=== PATIENT | female | born 1995 | race Caucasian/White ===

== ENCOUNTER 2016-04-23 09:02 | Observation (INO) | payer MEDICARE, MEDICAID ==
[2016-04-23] VITALS (10 sets, daily range): BP systolic 103–144; BP diastolic 52–79; PULSE 82–100; RESP 16–20; TEMP 97.9–98.1; O2SAT 100
[~2016-04-23] VITALS: Ht 167.6 cm; Wt 125.8 kg
[~2016-04-23 09:02] MED LIST: B12-1CHW CHEW; BETH10TA2 PO; CLON0.1T PO; COLE1TAB2 PO; DICL75TA PO; PRED50 PO; RISP1 PO; ROBA750T PO; SERT-129 PO; TOPA100T11 PO
[2016-04-23] MEDS ORDERED: LEXA20TA PO (09:23)
[2016-04-23] MEDS ORDERED: MINO75CA PO (09:23)
--- NOTE | 2016-04-23 09:29 | PD ---
HPI Chief Complaint: GI Complaint Time Seen by Provider: 09:18 Travel History International Travel<30 days: No Contact w/Intl Traveler<30days: No Traveled to known affect area: No History of Present Illness HPI 20-year-old morbidly obese female here with complaint of abdominal pain. Patient has had 4-5 days of abdominal pain. This is crampy, across the upper abdomen epigastrium radiating left and right and around to the back. Slightly up into the chest. Associated nausea, vomiting. 5-6 episodes of emesis per day, nonbloody, nonbilious. She notes subjective fevers and chills, nothing documented. Denies any history of hepatobiliary pathology, gastritis, peptic ulcer disease. Notes a history of familial pancreatic cancer. Denies any urinary symptoms. LMP approximately 3 weeks ago. PFSH Past Medical History ADHD: Yes Anemia: Yes Autoimmune Disease: No Anxiety: Yes (PANIC ATTACKS) Depression: Yes Cardiovascular Problems: Yes ("PERICARDITIS" 2010) Diminished Hearing: No Gastrointestinal Disorders: Yes (CROHN'S DISEASE) GERD: Yes Genitourinary: No Headaches: Yes Musculoskeletal: Yes (SCOLIOSIS, costochondritis ) Neurologic: Yes (TREMORS, TOURETTES) Psychiatric: Yes (ADHD) Reproductive: No Respiratory: No Immunizations Current: Yes Seizures: No ?: Not LMP: 3 WEEKS : 0 Para: 0 Past Surgical History Oral Surgery: Yes (WISDOM TEETH REMOVED) Other Surgery: Yes (PILONIDAL CYST ) Social History Alcohol Use: Yes (occ) Tobacco Use: No Substance Use: No Allergies-Medications (Allergen,Severity, Reaction): Coded Allergies: Benadryl (Verified Allergy, Intermediate, HIVES, GI UPSET, 04/23/16) Reported Meds & Prescriptions Reported Meds & Active Scripts Active Reported Lexapro (Escitalopram Oxalate) 20 Mg Tab 20 Mg PO DAILY Minocycline (Minocycline HCl) 75 Mg Cap 75 Mg PO BID Colestipol (Colestipol HCl) 1 Gm Tab 2 Gm PO DAILY Topamax (Topiramate) 100 Mg Tab 100 Mg PO DAILY Risperdal (Risperidone) 1 Mg Tab 0.5 Mg PO BID [id number] (Methylcobalamin) 1 Mg Chew 1 Mg CHEW DAILY Clonidine (Clonidine HCl) 0.1 Mg Tab 0.15 Mg PO TID Bethanechol 10 Mg Tab 10 Mg PO TID Review of Systems Except as stated in HPI: all other systems reviewed are Neg Physical Exam Narrative GENERAL: Morbidly obese female appearing older than stated age in no acute distress SKIN: Warm and dry. HEAD: Normocephalic. EYES: No scleral icterus. No injection or drainage. ENT: Mucous membranes pink and moist. NECK: Supple CARDIOVASCULAR: Regular rate and rhythm. No murmur appreciated. RESPIRATORY: No accessory muscle use. Clear to auscultation. Breath sounds equal bilaterally. GASTROINTESTINAL: Abdomen soft, morbidly obese. Abdominal tenderness to palpation without rebound or guarding, moderate greater's in the right upper quadrant. Patient also has tenderness to palpation in the epigastrium, periumbilical and less so right lower quadrant. No CVA tenderness. MUSCULOSKELETAL: Normal gait NEUROLOGICAL: Awake and alert. Normal speech. PSYCHIATRIC: Appropriate mood and affect; insight and judgment normal. Data Data Last Documented VS Vital Signs Date Time Temp Pulse Resp B/P Pulse Ox O2 Delivery O2 Flow Rate FiO2 04/23/16 11:05 98 16 109/75 100 Room Air 04/23/16 09:08 98.1 Orders Complete Blood Count With Diff (04/23/16 09:22) Comprehensive Metabolic Panel (04/23/16 09:22) Lipase (04/23/16 09:22) Urinalysis - C+S If Indicated (04/23/16 09:22) Us Abdomen Gallbladder (04/23/16 ) Iv Access Insert/Monitor (04/23/16 09:22) Ecg Monitoring (04/23/16 09:22) Oximetry (04/23/16 09:22) Ondansetron Inj (Zofran Inj) (04/23/16 09:30) Sodium Chloride 0.9% Flush (Ns Flush) (04/23/16 09:30) Ketorolac Inj (Toradol Inj) (04/23/16 09:30) Ed Urine Pregnancytest Poc (04/23/16 09:22) Ct Abd/Pel W/O Iv Contrast (04/23/16 10:56) Morphine Inj (Morphine Inj) (04/23/16 12:00) Piperacil-Tazo 4.5 Gm Premix (Zosyn 4.5 (04/23/16 12:15) Admit Order (Ed Use Only) (04/23/16 12:07) Labs Laboratory Tests Test 04/23/16 04/23/16 09:30 10:55 White Blood Count 19.3 TH/MM3 Red Blood Count 4.96 MIL/MM3 Hemoglobin 13.9 GM/DL Hematocrit 41.8 % Mean Corpuscular Volume 84.3 FL Mean Corpuscular Hemoglobin 28.0 PG Mean Corpuscular Hemoglobin 33.3 % Concent Red Cell Distribution Width 14.0 % Platelet Count 335 TH/MM3 Mean Platelet Volume 7.8 FL Neutrophils (%) (Auto) 85.1 % Lymphocytes (%) (Auto) 6.7 % Monocytes (%) (Auto) 7.0 % Eosinophils (%) (Auto) 0.5 % Basophils (%) (Auto) 0.7 % Neutrophils # (Auto) 16.5 TH/MM3 Lymphocytes # (Auto) 1.3 TH/MM3 Monocytes # (Auto) 1.3 TH/MM3 Eosinophils # (Auto) 0.1 TH/MM3 Basophils # (Auto) 0.1 TH/MM3 CBC Comment AUTO DIFF Differential Comment AUTO DIFF CONFIRMED Platelet Estimate NORMAL Platelet Morphology Comment NORMAL Red Cell Morphology Comment NORMAL Sodium Level 141 MEQ/L Potassium Level 4.1 MEQ/L Chloride Level 109 MEQ/L Carbon Dioxide Level 23.0 MEQ/L Anion Gap 9 MEQ/L Blood Urea Nitrogen 11 MG/DL Creatinine 0.75 MG/DL Estimat Glomerular Filtration 98 ML/MIN Rate Random Glucose 114 MG/DL Calcium Level 8.9 MG/DL Total Bilirubin 0.2 MG/DL Aspartate Amino Transf 10 U/L (AST/SGOT) Alanine Aminotransferase 24 U/L (ALT/SGPT) Alkaline Phosphatase 88 U/L Total Protein 7.7 GM/DL Albumin 3.7 GM/DL Lipase 171 U/L Urine Collection Type CLEAN CATCH Urine Color YELLOW Urine Turbidity CLEAR Urine pH 6.0 Urine Specific Worden 1.013 Urine Protein NEG mg/dL Urine Glucose (UA) NEG mg/dL Urine Ketones NEG mg/dL Urine Occult Blood NEG Urine Nitrite NEG Urine Bilirubin NEG Urine Leukocyte Esterase TRACE Urine WBC 0-2 /hpf Microscopic Urinalysis Comment CULT NOT INDICATED Urine Collection Time 1055 MDM Medical Decision Making Medical Screen Exam Complete: Yes Emergency Medical Condition: Yes Medical Record Reviewed: Yes Differential Diagnosis Morbidly obese 20-year-old female here with complaint of 4-5 days of upper abdominal pain, no reproducible greatest in the right upper quadrant on exam, with nausea and vomiting. Differential includes gastritis, pancreatitis, hepatobiliary pathology, UTI/pyelonephritis, less likely appendicitis, . Narrative Course Patient placed on monitor, IV established and blood obtained. Given 4 mg Zofran , 30 mg Toradol. CBC, CMP, lipase, urinalysis, urine test obtained and notable for WBC 19.3. Ultrasound of the right upper quadrant showed cholelithiasis with multiple mobile gallstones in the gallbladder. Fatty metamorphosis of the liver. Given leukocytosis a CT of the abdomen and pelvis was obtained to rule out appendicitis as she does have right sided abdominal pain. CT showed no evidence of abnormalities. Her history and exam are most consistent with early cholecystitis. Patient still quite uncomfortable requiring morphine. Given Zosyn and I spoke with Dr. Sharp of Gen. surgery who will admit for laparoscopic cholecystectomy. Diagnosis Primary Impression: Acute cholecystitis Admitting Information Admitting Physician Requests: Admit Federica Sanchez MD Apr 23, 2016 09:29
[2016-04-23] MEDS ORDERED: ONDANSETRON HCL 4 MG/2 ML VIAL IVP ONE (09:30)
[2016-04-23] MEDS ORDERED: SODIUM CHLORIDE 0.9% FLUSH 5 ML FLUSH IVF PRN (09:30)
[2016-04-23] MEDS ORDERED: KETOROLAC TROMETHAMINE 30 MG/ML (IVP) VIAL IVP ONE (09:30)
[2016-04-23 09:50] LABS: AUTOMATED NEUTROPHIL # 16.5 TH/MM3 (1.8-7.7); BASOPHIL # 0.1 TH/MM3 (0-0.2); BASOPHIL % 0.7 % (0.0-2.0); EOSINOPHIL # 0.1 TH/MM3 (0-0.4); EOSINOPHIL % 0.5 % (0.0-4.0); HEMATOCRIT 41.8 % (35.0-46.0); LYMPH % 6.7 % (9.0-44.0); LYMPHOCYTE # 1.3 TH/MM3 (1.0-4.8); MEAN CELL VOLUME 84.3 FL (80.0-100.0); MEAN CORPUSCULAR HGB CONC 33.3 % (32.0-36.0); NEUT % 85.1 % (16.0-70.0); PLATELET COUNT 335 TH/MM3 (150-450); RED BLOOD COUNT 4.96 MIL/MM3 (4.00-5.30); WHITE BLOOD COUNT 19.3 TH/MM3 (4.0-11.0)
[2016-04-23 09:57] LABS: HEMO FLAGS AUTO DIFF
[2016-04-23 10:06] LABS: CHLORIDE 109 MEQ/L (98-107); POTASSIUM 4.1 MEQ/L (3.5-5.1); SODIUM (NA) 141 MEQ/L (136-145)
[2016-04-23 10:10] LABS: ANION GAP 9 MEQ/L (5-15); BLOOD UREA NITROGEN 11 MG/DL (7-18)
[2016-04-23 10:14] LABS: ALT (GPT) 24 U/L (10-53); AST (GOT) 10 U/L (15-37)
[2016-04-23 10:15] LABS: GLOMERULAR FILTRATION RATE 98 ML/MIN (>89)
[2016-04-23 10:17] LABS: ALKALINE PHOSPHATASE 88 U/L (45-117)
[2016-04-23 10:29] LABS: TOTAL BILIRUBIN ADULT 0.2 MG/DL (0.2-1.0)
[2016-04-23 10:34] LABS: PLATELET ESTIMATE SMEAR NORMAL (NORMAL); PLATELET MORPHOLOGY NORMAL (NORMAL); SCAN/DIFF AUTO DIFF CONFIRMED
--- NOTE | 2016-04-23 11:07 | RADHPO ---
EXAM DATE/TIME: 04/23/2016 10:33 [facility] COMPARISON: CT ABDOMEN & PELVIS W CONTRAST, April 30, 2013, 0:09. EXTERNAL COMPARISON : [facility], US ABDOMEN, COMPLETE, January 24, 2011 INDICATIONS : Right upper quadrant pain, nausea and vomiting. MEDICAL HISTORY : Tremors. Tourette's syndrome. pericarditis. gerd. scoliosis. costochondritis. anemia. SURGICAL HISTORY : Oral surgery - wisdom teeth removed. Endoscopy. Pilonidal cyst removed. ENCOUNTER: Initial ACUITY: 4-6 days PAIN SCORE: 9/10 LOCATION: Right upper quadrant MEASUREMENTS: LIVER: 19.1 cm length COMMON DUCT: 4 mm RIGHT KIDNEY: 10.7 x 5.2 x 5.7 cm FINDINGS: LIVER: Liver is enlarged at 19 cm vertical height with increased homogeneous echotexture consistent with fat ty metamorphosis.. COMMON DUCT: No intraluminal mass or stone visualized. GALLBLADDER: Multiple mobile stones within the gallbladder. PANCREAS: The visualized portions are within normal limits. RIGHT KIDNEY: No evidence of hydronephrosis, stone, or mass. CONCLUSION: Cholelithiasis multiple mobile stones in the gallbladder. Fatty metamorphosis of the liver Michoacano Villatoro MD on April 23, 2016 at 11:03 Board Certified Radiologist. This report was verified electronically.
[2016-04-23 11:14] LABS: BLOOD, URINE NEG (NEG); GLUCOSE,URINE NEG (NEG); KETONE, URINE NEG (NEG); NITRITE,URINE NEG (NEG)
[2016-04-23 11:24] LABS: COMMENT (UR) CULT NOT INDICATED; CULTURE IF INDICATED CULT NOT INDICATED; METHOD OF COLLECTION CLEAN CATCH; URINE COLOR YELLOW (YELLW/STRAW); WBC, URINE 0-2 /hpf (0-5)
--- NOTE | 2016-04-23 11:48 | RADHPO ---
EXAM DATE/TIME: 04/23/2016 11:12 [facility] COMPARISON: CT ABDOMEN & PELVIS W CONTRAST, April 30, 2013, 0:09. INDICATIONS : Right sided abdominal pain. Evaluate for appendicitis. ORAL CONTRAST: No oral contrast ingested. RADIATION DOSE: 31.41 CTDIvol (mGy) MEDICAL HISTORY : Crohn's disease. Gastroesophageal reflux disease. SURGICAL HISTORY : None. ENCOUNTER: Initial ACUITY: 1 week PAIN SCALE: 9/10 LOCATION: Right abdomen/pelvis TECHNIQUE: Volumetric scanning of the abdomen and pelvis was performed. Using automated exposure control and ad justment of the mA and/or kV according to patient size, radiation dose was kept as low as reasonably achievable to obtain optimal diagnostic quality images. FINDINGS: LOWER LUNGS: The visualized lower lungs are clear. LIVER: Homogeneous density without lesion. There is no dilation of the biliary tree. No calcified gallston es. Gallbladder seen is a luminal structure without wall thickening. SPLEEN: Normal size without lesion. PANCREAS: Within normal limits. KIDNEYS: Normal in size and shape. There is no mass, stone, or hydronephrosis. ADRENAL GLANDS: Within normal limits. VASCULAR: There is no aortic aneurysm. BOWEL/MESENTERY: The stomach, small bowel, and colon demonstrate no acute abnormality. There is no free intraperitone al air or fluid. Appendix visualized and is normal. ABDOMINAL WALL: Within normal limits. RETROPERITONEUM: There is no lymphadenopathy. BLADDER: No wall thickening or mass. REPRODUCTIVE: Within normal limits. INGUINAL: There is no lymphadenopathy or hernia. MUSCULOSKELETAL: Within normal limits for patient age. CONCLUSION: Negative examination. Appendix visualized and is normal. Michoacano Villatoro MD on April 23, 2016 at 11:43 Board Certified Radiologist. This report was verified electronically.
[2016-04-23] MEDS ORDERED: MORPHINE SULFATE 4 MG/ML INJ IV PUSH ONE ×2 (12:00→15:15)
[2016-04-23] MEDS ORDERED: PIPERACIL-TAZO 4.5 GM PREMIX 100 ML IV ONE (12:15)
[2016-04-23] MEDS ORDERED: oxyCODONE/ACETAMINOPHEN 5 MG/325 MG TAB PO ONE (15:15)
[2016-04-23] MEDS ORDERED: ONDANSETRON HCL 4 MG/2 ML VIAL IV PUSH ONE (15:45)
[2016-04-23] MEDS ORDERED: MORPHINE SULFATE 4 MG/ML INJ IV PRN (21:00)
[2016-04-23] MEDS ORDERED: PILL SPLITTER OTHER PRN (21:30)
[2016-04-23] MEDS ORDERED: ESCITALOPRAM OXALATE 20 MG TAB PO ONE (22:00)
[2016-04-23] MEDS: KETOROLAC TROMETHAMINE 30 MG/ML (IVP) VIAL IV PUSH PRN (22:27)
[2016-04-23] MEDS: ONDANSETRON HCL 4 MG/2 ML VIAL IV PUSH PRN (23:05)
[2016-04-23] MEDS: SODIUM CHLOR 0.9% 1000 ML INJ 1,000 ML IV SCH (23:06)
[2016-04-24] VITALS: BP 117/72; PULSE 89; RESP 20; TEMP 98.7; O2SAT 99
[2016-04-24] MEDS: PIPERACIL-TAZO 3.375 GM PREMIX 50 ML IV SCH ×5 (00:25→21:38)
[2016-04-24] MEDS ORDERED: LACTATED RINGER'S 1000 ML IV SCH (05:00)
[2016-04-24] MEDS: ONDANSETRON HCL 4 MG/2 ML VIAL IV PUSH PRN (05:25)
[2016-04-24] MEDS ORDERED: ACETAMINOPHEN 325 MG TAB PO PRN ×2 (07:30→16:00)
[2016-04-24] MEDS: BETHANECHOL CHL 10 MG TAB PO SCH ×3 (07:49→18:23)
[2016-04-24] MEDS: TOPIRAMATE 100 MG TAB PO SCH (07:49)
[2016-04-24] MEDS: cloNIDine HCL 0.3 MG TAB PO SCH ×3 (07:49→18:23)
[2016-04-24] MEDS: ESCITALOPRAM OXALATE 20 MG TAB PO SCH (07:49)
[2016-04-24] MEDS: SODIUM CHLOR 0.9% 1000 ML INJ 1,000 ML IV SCH ×2 (07:50→16:00)
[2016-04-24] MEDS: risperiDONE 0.5 MG TAB PO SCH (07:50)
[2016-04-24 08:00] VITALS: BP 128/78; PULSE 81; RESP 17; TEMP 96.2; O2SAT 100
[2016-04-24] MEDS ORDERED: BETHANECHOL CHL 10 MG TAB PO SCH (09:00)
[2016-04-24 12:00] VITALS: BP 133/64; PULSE 95; RESP 17; TEMP 97.3; O2SAT 99
[2016-04-24] MEDS ORDERED: FAMOTIDINE 20 MG/2 ML VIAL ONE (12:46)
[2016-04-24] MEDS ORDERED: APREPITANT 40 MG CAP ONE (12:46)
[2016-04-24] MEDS ORDERED: MIDAZOLAM HCL 2 MG/2 ML VIAL ONE (12:46)
[2016-04-24] MEDS ORDERED: DEXAMETHASONE SOD PHOS 4 MG/ML VIAL ONE (12:47)
[2016-04-24] MEDS ORDERED: fentaNYL CITRATE 250 MCG/5 ML AMP ONE (13:55)
[2016-04-24] MEDS ORDERED: ONDANSETRON HCL 4 MG/2 ML VIAL IV PUSH ONE (14:05)
[2016-04-24] MEDS ORDERED: PROPOFOL 200 MG/20 ML AMP IV ONE (14:05)
[2016-04-24] MEDS ORDERED: NEOSTIGMINE 3 MG/3 ML SYR IV ONE (14:05)
[2016-04-24] MEDS ORDERED: BUPIVACAINE/EPINEPHRINE 0.25% PF 30 ML VIAL ONE (14:46)
[2016-04-24] MEDS ORDERED: diphenhydrAMINE HCL 25 MG CAP PO PRN (16:00)
[2016-04-24] MEDS ORDERED: MAGNESIUM HYDROXIDE SUSP 30 ML CUP PO PRN (16:00)
[2016-04-24] MEDS ORDERED: HYDROmorphone HCL PF 1 MG/ML VIAL IV PRN (16:00)
[2016-04-24] MEDS ORDERED: ACETAMINOPHEN/HYDROcodone 325 MG/5 MG TAB PO PRN (16:00)
[2016-04-24] MEDS ORDERED: SODIUM CHLORIDE 0.9% FLUSH 5 ML FLUSH IVF PRN (16:00)
[2016-04-24] MEDS ORDERED: Post-op Orders (for Pharmacy) MISC XX ONE (16:00)
[2016-04-24] MEDS ORDERED: ONDANSETRON HCL 4 MG/2 ML VIAL IV PRN (16:00)
--- NOTE | 2016-04-24 16:06 | HHI.PR ---
Immediate Post Op Note Procedure Date: Apr 24, 2016 Pre Op Diagnosis: (1) Acute cholecystitis Post Op Diagnosis: (1) Acute cholecystitis Surgeon: Rg Sharp Vocational Director(s): none Procedure: Robotic Assisted Cholecystectomy Findings: acute cholecystitis Complications: none Specimen(s) removed: GB Estimated blood loss: 10ml Anesthesia: General, Local Drains: None IVF Patient to: PACU Patient Condition: Good Rg Sharp MD Apr 24, 2016 16:06
[2016-04-24] MEDS ORDERED: *RESP: ALBUTEROL 2.5 MG/3 ML NEB (PRN) PERIprocedural Use ONLY NEB ONE (16:30)
--- NOTE | 2016-04-24 16:44 | MH ---
cc: BRYAN ANDERS DATE OF ADMISSION 04/23/2016. Time is 0730 of physical examination. CHIEF COMPLAINT Acute cholecystitis. HISTORY OF PRESENT ILLNESS The patient is a 20-year-old female who was seen at [facility] for severe right upper quadrant pain for 4-5 days. The patient underwent evaluation and was found to have significant tenderness in right upper quadrant on physical examination by the emergency room physician. The CT scan and ultrasound did show cholelithiasis concerning for acute cholecystitis. The patient also had elevated white blood cell count. The patient did request surgery and was transferred to [facility] for surgical evaluation and cholecystectomy. Currently the patient's pain is controlled, does still have some pain in the upper right quadrant. The patient denies any nausea, vomiting, fevers, chills, night sweats, diarrhea, constipation, any previous history of this pain, any sick contacts or any chest pain, shortness of breath or any other complaints. REVIEW OF SYSTEMS A 12-point you systems was discussed with the patient and is negative except for the pertinent positives mentioned above in the history of present illness. PAST MEDICAL HISTORY 1. ADHD. 2. Anemia. 3. Anxiety. 4. Depression. 5. History of pericarditis. 6. Crohn disease. 7. Gastroesophageal reflux disease. 8. Scoliosis. 9. Chronic headaches. 10. Tourette's syndrome. PAST SURGICAL HISTORY 1. [place] teeth extraction. 2. Pilonidal cyst removal. ALLERGIES BENADRYL. MEDICATIONS 1. Lexapro. 2. Minocycline. 3. Cholestipol. 4. Toprol. 5. Risperdal. 6. B12. 7. Clonidine. 8. Bethanechol. SOCIAL HISTORY The patient uses alcohol occasionally. Denies illicit drug or tobacco use. FAMILY HISTORY Noncontributory. PHYSICAL EXAMINATION VITAL SIGNS: Afebrile. Blood pressure 113/52, heart rate 84. GENERAL: The patient is an overweight female in no acute distress. Does not appear acute or chronically ill. distress. HEENT: Normocephalic, atraumatic. Pupils round, reactive to light and accommodation. Sclerae is anicteric. Mucous membranes are moist. NECK: Supple. No JVD. LUNGS: Clear to auscultation bilaterally. Nonlabored breathing pattern. HEART: Regular rate and rhythm. No murmurs. ABDOMEN: Soft. Tender to palpation in the right upper quadrant. Positive Alatorre sign. Negative for right lower quadrant pain. Negative for hernia, ascites, organomegaly. Negative for rebound tenderness. Normal bowel sounds. EXTREMITIES: No clubbing, cyanosis or edema. BACK: No CVA tenderness. NEUROLOGICAL: The patient is alert and oriented times three. Moving all extremities equally. Cranial nerves II through XII are grossly intact. ASSESSMENT AND PLAN The patient is 20-year-old female with acute cholecystitis. Discussed with the patient about management including nonoperative management and I discussed the risks, benefits, alternatives to laparoscopic cholecystectomy. She agreed to undergo laparoscopic cholecystectomy which we will plan. All of her questions were answered to her satisfaction. We will perform procedure in the next 24 hours based on operating room availability. Bryan Anders MD AWG/KK /4:14 PM /4:27 PM
[2016-04-24] MEDS ORDERED: *morphine SULFATE 8 MG/ML PERIprocedure ONLY ONE ×2 (16:45→17:19)
[2016-04-24] MEDS ORDERED: *ONDANSETRON 4 MG VIAL PERIprocedural Use ONLY ONE (16:53)
[2016-04-24 19:58] VITALS: BP 123/70; PULSE 92; RESP 18; TEMP 97.4; O2SAT 97
[2016-04-24 20:45] VITALS: O2SAT 97
[2016-04-24] MEDS: SODIUM CHLORIDE 0.9% FLUSH 5 ML FLUSH IVF SCH (21:00)
[2016-04-24] MEDS: DOCUSATE SODIUM 100 MG CAP PO SCH (21:38)
[2016-04-24] MEDS: KETOROLAC TROMETHAMINE 30 MG/ML (IVP) VIAL IV PUSH PRN (21:38)
[2016-04-24 23:37] VITALS: BP 116/69; PULSE 102; RESP 18; TEMP 97.5; O2SAT 97
[2016-04-25] MEDS: SODIUM CHLOR 0.9% 1000 ML INJ 1,000 ML IV SCH (02:01)
[2016-04-25] MEDS: PIPERACIL-TAZO 3.375 GM PREMIX 50 ML IV SCH (03:42)
[2016-04-25] MEDS: ACETAMINOPHEN/HYDROcodone 325 MG/5 MG TAB PO PRN ×2 (03:42→09:19)
[2016-04-25 04:00] VITALS: BP 96/55; PULSE 94; RESP 18; TEMP 97.3; O2SAT 96
--- NOTE | 2016-04-25 06:46 | MP ---
cc: BRYAN ANDERS DATE OF SURGERY 04/24/2016 PREOPERATIVE DIAGNOSIS Acute cholecystitis. POSTOPERATIVE DIAGNOSIS Acute cholecystitis. PROCEDURE Robotic-assisted cholecystectomy. ANESTHESIA General. ATTENDING SURGEON MD Aron [employer] BLOCK[employer] Staff. BLOOD LOSS Less than 10 cc. COMPLICATIONS None. FINDINGS Acute cholecystitis. INDICATIONS FOR PROCEDURE The patient is a 20-year-old female with elevated white blood cell count, right lower quadrant tenderness and cholelithiasis on exam. The patient was recommended to undergo laparoscopic or robotic cholecystectomy for treatment of her cholecystitis and, after discussion with the patient about the risks, benefits and alternatives, she agreed to undergo the procedure. PROCEDURE After informed consent was obtained, the patient was taken to the operating, placed in a supine position, placed under general endotracheal anesthesia. The patient's abdomen was prepped and draped in the usual sterile fashion. Time-out was performed. The abdomen was entered just above the umbilicus with a 10-mm OptiView trocar. We directly visualized entry into the abdominal cavity and insufflated the abdomen. We used a 5-mm 0-degree camera to survey the abdomen. There was no evidence any complication from our entry. We then placed three robotic ports, one in the left upper quadrant and two in the right lower quadrant under direct visualization with the laparoscope. Then docked the da Maris SI robotic system without difficulty. We used a ProGrasp in arm #3 to lift up on the gallbladder and a fenestrated bipolar and scissors with electrocautery in arm #1 and began dissecting the gallbladder at the triangle of Calot. We took down all of the visceral peritoneum and easily dissected out the cystic duct and cystic artery. A critical view of safety was obtained. We then used the robotic permanent clips and placed one proximal and one distal on the cystic duct, one proximal and one distal on the cystic artery and one proximal on a very small posterior branch of the cystic artery. We used the scissors to take the gallbladder off of the gallbladder fossa using Monocryl electrocautery without difficulty. Removed the gallbladder from the abdomen through the left upper quadrant the 8 port that was extended to a 10 port with the EndoCatch bag. At this point in time we then removed all ports an undocked the robot without difficulty. We did evaluate the abdomen prior to leaving. There is no evidence any complication, no bile leak, no bleeding and all our clips were in good position. All ports were placed off the midline, therefore we were able to just close the skin with deep dermal Vicryl and 4-0 Monocryl sutures. The patient was discontinued from anesthesia, taken to the PACU in stable condition. The patient tolerated the procedure well. No apparent complications. All counts were correct and I was present and scrubbed for the entire procedure. MD KORINA Fleming/SSB /4:20 PM /6:33 AM
[2016-04-25 08:00] VITALS: BP 100/50; PULSE 98; RESP 16; TEMP 97.8; O2SAT 97
[2016-04-25] MEDS: cloNIDine HCL 0.3 MG TAB PO SCH (09:00)
[2016-04-25] MEDS: DOCUSATE SODIUM 100 MG CAP PO SCH (09:19)
[2016-04-25] MEDS: TOPIRAMATE 100 MG TAB PO SCH (09:19)
[2016-04-25] MEDS: ESCITALOPRAM OXALATE 20 MG TAB PO SCH (09:19)
[2016-04-25] MEDS: risperiDONE 0.5 MG TAB PO SCH (09:19)
[2016-04-25] MEDS: BETHANECHOL CHL 10 MG TAB PO SCH (09:19)
[2016-04-25] MEDS: SODIUM CHLORIDE 0.9% FLUSH 5 ML FLUSH IVF SCH (09:20)
[2016-04-25 09:30] VITALS: BP 115/56
[2016-04-25 10:09] VITALS: O2SAT 97
[2016-04-25 12:00] VITALS: BP 98/53; PULSE 85; RESP 18; TEMP 96.9; O2SAT 99
--- NOTE | 2016-04-25 13:03 | HHI.DS ---
Discharge Summary Admission Date Apr 23, 2016 at 12:09 Discharge Date: Apr 25, 2016 Admitting Diagnosis early acute cholecystitis Brief History 20 year old female with RUQ pain. Evaluation completed and revealed acute cholecystitis. CBC/BMP: 04/23/16 0930 04/23/16 0930 Significant Findings Laboratory Tests Test 04/23/16 04/23/16 09:30 10:55 White Blood Count 19.3 TH/MM3 (4.0-11.0) Neutrophils (%) (Auto) 85.1 % (16.0-70.0) Lymphocytes (%) (Auto) 6.7 % (9.0-44.0) Neutrophils # (Auto) 16.5 TH/MM3 (1.8-7.7) Monocytes # (Auto) 1.3 TH/MM3 (0-0.9) Chloride Level 109 MEQ/L (98-107) Random Glucose 114 MG/DL (74-106) Aspartate Amino Transf 10 U/L (15-37) (AST/SGOT) Urine Leukocyte Esterase TRACE (NEG) PE at Discharge Alert and awake resting in bed Cardio: RRR Resp: CTAB Abd: lap sites c/d/i with skin glue intact Hospital Course This is a 20 year old female who came to the ED for evaluation of RUQ pain. Workup revealed acute cholecystitis. The patient had a laparoscopic cholecystectomy with no complications. She was able to tolerate a regular diet. Her pain was controlled using oral pain medications. She was provided a note for work. She will follow up in the office in about 7-10 days. Pt Condition on Discharge: Good Discharge Disposition: Discharge Home Discharge Instructions DIET: Follow Instructions for: As Tolerated, No Restrictions Activities you can perform: Regular-No Restrictions Other Activity Instructions: Okay to shower; pat incision dry Liliane Cabrera Apr 25, 2016 13:03
[2016-04-25] MEDS ORDERED: ENOXAPARIN SODIUM 40 MG/0.4 ML SYRINGE SQ SCH (15:45)
== END 2016-04-25 13:27 | disposition home or self-care (01) ==
LOC: PHED 09:02 → PHEDA 12:09 → INTOOBSV 12:09 → N07A 17:49
PROVIDERS: ADMIT Surgery; ATTEND Surgery
DX: K80.12 Calculus of gallbladder with acute and chronic cholecystitis without obstruction (principal); K50.90 Crohn's disease, unspecified, without complications; D64.9 Anemia, unspecified; F41.0 Panic disorder [episodic paroxysmal anxiety]; F32.9 Major depressive disorder, single episode, unspecified; M41.9 Scoliosis, unspecified; K21.9 Gastro-esophageal reflux disease without esophagitis; E66.01 Morbid (severe) obesity due to excess calories; Z68.41 Body mass index [BMI] 40.0-44.9, adult; Z85.07 Personal history of malignant neoplasm of pancreas
CPT/HCPCS: 00790; 47562; 74176; 76705; 80053; 81001; 83690; 84703; 85025; 88304; 94664; 96374; 96375; 99285; G0378; J1100; J1170; J1885; J2250; J2270; J2405; J2543; J2710; J3010; J7030; J7120; J7613; J8501

== ENCOUNTER 2016-04-28 23:16 | Emergency (ER) | payer MEDICARE, MEDICAID ==
[~2016-04-28] VITALS: Ht 167.6 cm; Wt 126.5 kg
[~2016-04-28 23:16] MED LIST changes: -DICL75TA PO; +LEXA20TA PO; +MINO75CA PO; -PRED50 PO; -ROBA750T PO; -SERT-129 PO
[2016-04-28 23:27] VITALS: BP 125/75; PULSE 86; RESP 28; TEMP 98.1; O2SAT 100
[2016-04-29] VITALS: BP 105/78; PULSE 84; RESP 18; RESP 20; O2SAT 100
[2016-04-29] MEDS ORDERED: HYDR-3516 PO (00:05)
[2016-04-29 01:05] VITALS: BP 137/66; PULSE 76; RESP 20; O2SAT 100
[2016-04-29] MEDS ORDERED: SODIUM CHLOR 0.9% 1000 ML INJ 1,000 ML IV SCH (01:31)
[2016-04-29] MEDS ORDERED: MORPHINE SULFATE 4 MG/ML INJ IV PUSH ONE (01:45)
[2016-04-29] MEDS ORDERED: SODIUM CHLORIDE 0.9% FLUSH 5 ML FLUSH IVF PRN (01:45)
[2016-04-29] MEDS ORDERED: ONDANSETRON HCL 4 MG/2 ML VIAL IVP ONE (01:45)
[2016-04-29 02:05] VITALS: BP 132/73; PULSE 67; RESP 18; O2SAT 100
[2016-04-29 02:14] LABS: AUTOMATED NEUTROPHIL # 8.9 TH/MM3 (1.8-7.7); BASOPHIL # 0.1 TH/MM3 (0-0.2); BASOPHIL % 0.6 % (0.0-2.0); EOSINOPHIL # 0.1 TH/MM3 (0-0.4); HEMATOCRIT 36.5 % (35.0-46.0); HEMO FLAGS DIFF FINAL; LYMPH % 22.3 % (9.0-44.0); LYMPHOCYTE # 2.8 TH/MM3 (1.0-4.8); MEAN CELL VOLUME 83.8 FL (80.0-100.0); MEAN CORPUSCULAR HEMOGLOBIN 27.4 PG (27.0-34.0); MEAN CORPUSCULAR HGB CONC 32.8 % (32.0-36.0); MONO % 4.3 % (0.0-8.0); NEUT % 71.8 % (16.0-70.0); PLATELET COUNT 345 TH/MM3 (150-450); RED BLOOD COUNT 4.35 MIL/MM3 (4.00-5.30); RED CELL DISTRIBUTION WIDTH 13.1 % (11.6-17.2); WHITE BLOOD COUNT 12.4 TH/MM3 (4.0-11.0)
[2016-04-29 02:15] LABS: BLOOD, URINE LARGE (NEG); GLUCOSE,URINE NEG (NEG); KETONE, URINE NEG (NEG); NITRITE,URINE NEG (NEG)
[2016-04-29 02:19] LABS: URINE COLOR YELLOW (YELLW/STRAW)
[2016-04-29 02:20] LABS: COMMENT (UR) CULT NOT INDICATED; CULTURE IF INDICATED CULT NOT INDICATED; SQUAMOUS EPITHELIAL CELL URINE 0-5 /hpf (0-5); WBC, URINE 0-2 /hpf (0-5)
[2016-04-29 02:21] LABS: CHLORIDE 109 MEQ/L (98-107); SODIUM (NA) 141 MEQ/L (136-145)
[2016-04-29 02:25] LABS: ANION GAP 8 MEQ/L (5-15); BICARBONATE 23.6 MEQ/L (21.0-32.0)
[2016-04-29 02:26] LABS: BLOOD UREA NITROGEN 12 MG/DL (7-18)
[2016-04-29 02:28] VITALS: RESP 16
[2016-04-29 02:28] LABS: ALT (GPT) 40 U/L (10-53); AST (GOT) 15 U/L (15-37); GLOMERULAR FILTRATION RATE 129 ML/MIN (>89)
[2016-04-29 02:30] LABS: TOTAL BILIRUBIN ADULT 0.2 MG/DL (0.2-1.0)
[2016-04-29 02:31] LABS: ALKALINE PHOSPHATASE 71 U/L (45-117)
[2016-04-29] MEDS ORDERED: PROM25TA5 PO (03:11)
--- NOTE | 2016-04-29 03:12 | PD ---
HPI Chief Complaint: GI Complaint Time Seen by Provider: 01:31 Travel History International Travel<30 days: No Contact w/Intl Traveler<30days: No Traveled to known affect area: No History of Present Illness HPI 20-year-old female presents to the emergency department by private transportation for complaint of abdominal pain. Patient reports she underwent elective cholecystectomy 04/23/16. Patient was discharged the next day. Patient was discharged with prescription for hydrocodone. Patient was informed by her surgeon that it could cause nausea vomiting and constipation. Patient has been supplementing her hydrocodone with Tylenol or ibuprofen. Patient has noted constipation to try to decrease use of narcotic pain medication. Patient was having abdominal pain today she was not taking any narcotic pain medication and this evening pain became more severe so she was concerned that the pain was worse and did not take any medication for her pain and did not contact her surgeon but decided instead to come to the emergency room. Patient's had no fever no chills no shortness of breath no pleuritic pain no cough no hemoptysis no vomiting no diarrhea has had some nausea and some constipation has had no dysuria and no flank pain. Patient has noticed no redness or drainage at the postoperative incision sites. Patient has taken no medications to assist with constipation such as stool softeners. Patient's continued to have normal dietary intake. Patient rates pain 9/10 in intensity. Last narcotic pain medication was yesterday and since then she has noted increasing discomfort and pain. PFSH Past Medical History Narrative Medical ADHD anemia morbid obesity anxiety depression GERD Crohn's disease headaches Tourette's cholecystectomy dental surgery possible cyst excision occasional alcohol use ADHD: Yes Anemia: Yes Autoimmune Disease: No Anxiety: Yes (PANIC ATTACKS) Depression: Yes Cardiovascular Problems: Yes ("PERICARDITIS" 2010) Diminished Hearing: No Gastrointestinal Disorders: Yes (CROHN'S DISEASE) GERD: Yes Genitourinary: No Headaches: Yes Musculoskeletal: Yes (SCOLIOSIS, costochondritis ) Neurologic: Yes (TREMORS, TOURETTES) Psychiatric: Yes (ADHD) Reproductive: No Respiratory: No Immunizations Current: Yes Seizures: No Influenza Vaccination: No ?: Not LMP: 03/28/16 : 0 Para: 0 Past Surgical History Cholecystectomy: Yes Oral Surgery: Yes (WISDOM TEETH REMOVED) Other Surgery: Yes (PILONIDAL CYST ) Social History Alcohol Use: Yes (occ) Tobacco Use: No Substance Use: No Allergies-Medications (Allergen,Severity, Reaction): Coded Allergies: Benadryl (Verified Allergy, Intermediate, HIVES, GI UPSET, 04/29/16) Reported Meds & Prescriptions Reported Meds & Active Scripts Active Phenergan (Promethazine HCl) 25 Mg Tab 25 Mg PO Q6H PRN Reported Hydrocodone-Acetaminophen 5-325 mg Tab 1 Tab PO Q6H PRN Lexapro (Escitalopram Oxalate) 20 Mg Tab 20 Mg PO DAILY Colestipol (Colestipol HCl) 1 Gm Tab 2 Gm PO DAILY Topamax (Topiramate) 100 Mg Tab 100 Mg PO DAILY Risperdal (Risperidone) 1 Mg Tab 0.5 Mg PO BID [id number] (Methylcobalamin) 1 Mg Chew 1 Mg CHEW DAILY Clonidine (Clonidine HCl) 0.1 Mg Tab 0.15 Mg PO TID Bethanechol 10 Mg Tab 10 Mg PO TID Review of Systems Except as stated in HPI: all other systems reviewed are Neg General / Constitutional: No: Fever, Chills HENT: No: Sore Throat, Congestion Cardiovascular: No: Chest Pain or Discomfort Respiratory: No: Cough, Shortness of Breath Gastrointestinal: Positive: Nausea, Abdominal Pain, Constipation, No: Vomiting , Diarrhea, Loss of Appetite Genitourinary: No: Urgency, Frequency, Dysuria Musculoskeletal: No: Myalgias, Arthralgias Skin: No Rash Neurologic: No: Weakness, Dizziness, Syncope Psychiatric: Positive: Anxiety Endocrine: No: Heat Intolerance, Cold Intolerance Hematologic/Lymphatic: No: Easy Bruising Physical Exam Narrative GENERAL: Well-developed well-nourished female in no acute distress no respiratory distress SKIN: Warm and dry. HEAD: Normocephalic. EYES: No scleral icterus. No injection or drainage. NECK: Supple, trachea midline. No JVD or lymphadenopathy. CARDIOVASCULAR: Regular rate and rhythm without murmurs, gallops, or rubs. RESPIRATORY: Breath sounds equal bilaterally. No accessory muscle use. GASTROINTESTINAL: Abdomen soft, nondistended. Postoperative sites without redness induration or purulent drainage. Mild diffuse tenderness without guarding or rebound. MUSCULOSKELETAL: No cyanosis, or edema. BACK: Nontender without obvious deformity. No CVA tenderness. Data Data Last Documented VS Vital Signs Date Time Temp Pulse Resp B/P Pulse Ox O2 Delivery O2 Flow Rate FiO2 04/29/16 02:28 16 04/29/16 02:05 67 132/73 100 Room Air 04/28/16 23:27 98.1 Orders Complete Blood Count With Diff (04/29/16 01:31) Comprehensive Metabolic Panel (04/29/16 01:31) Lipase (04/29/16 01:31) Urinalysis - C+S If Indicated (04/29/16 01:31) Iv Access Insert/Monitor (04/29/16 01:31) Ecg Monitoring (04/29/16 01:31) Oximetry (04/29/16 01:31) Morphine Inj (Morphine Inj) (04/29/16 01:45) Ondansetron Inj (Zofran Inj) (04/29/16 01:45) Sodium Chlor 0.9% 1000 Ml Inj (Ns 1000 M (04/29/16 01:31) Sodium Chloride 0.9% Flush (Ns Flush) (04/29/16 01:45) Ed Urine Pregnancytest Poc (04/29/16 01:31) Ketorolac Inj (Toradol Inj) (04/29/16 03:15) Labs Laboratory Tests Test 04/29/16 01:45 White Blood Count 12.4 TH/MM3 Red Blood Count 4.35 MIL/MM3 Hemoglobin 11.9 GM/DL Hematocrit 36.5 % Mean Corpuscular Volume 83.8 FL Mean Corpuscular Hemoglobin 27.4 PG Mean Corpuscular Hemoglobin 32.8 % Concent Red Cell Distribution Width 13.1 % Platelet Count 345 TH/MM3 Mean Platelet Volume 8.4 FL Neutrophils (%) (Auto) 71.8 % Lymphocytes (%) (Auto) 22.3 % Monocytes (%) (Auto) 4.3 % Eosinophils (%) (Auto) 1.0 % Basophils (%) (Auto) 0.6 % Neutrophils # (Auto) 8.9 TH/MM3 Lymphocytes # (Auto) 2.8 TH/MM3 Monocytes # (Auto) 0.5 TH/MM3 Eosinophils # (Auto) 0.1 TH/MM3 Basophils # (Auto) 0.1 TH/MM3 CBC Comment DIFF FINAL Differential Comment Urine Color YELLOW Urine Turbidity SLIGHT Urine pH 7.0 Urine Specific [place] 1.020 Urine Protein NEG mg/dL Urine Glucose (UA) NEG mg/dL Urine Ketones NEG mg/dL Urine Occult Blood LARGE Urine Nitrite NEG Urine Bilirubin NEG Urine Leukocyte Esterase NEG Urine RBC 20-24 /hpf Urine WBC 0-2 /hpf Urine Squamous Epithelial 0-5 /hpf Cells Urine Bacteria NONE /hpf Microscopic Urinalysis Comment CULT NOT INDICATED Sodium Level 141 MEQ/L Potassium Level 4.0 MEQ/L Chloride Level 109 MEQ/L Carbon Dioxide Level 23.6 MEQ/L Anion Gap 8 MEQ/L Blood Urea Nitrogen 12 MG/DL Creatinine 0.59 MG/DL Estimat Glomerular Filtration 129 ML/MIN Rate Random Glucose 88 MG/DL Calcium Level 8.7 MG/DL Total Bilirubin 0.2 MG/DL Aspartate Amino Transf 15 U/L (AST/SGOT) Alanine Aminotransferase 40 U/L (ALT/SGPT) Alkaline Phosphatase 71 U/L Total Protein 7.1 GM/DL Albumin 3.2 GM/DL Lipase 306 U/L [facility] Medical Decision Making Medical Screen Exam Complete: Yes Emergency Medical Condition: Yes Medical Record Reviewed: Yes Interpretation(s) Vital Signs Date Time Temp Pulse Resp B/P Pulse Ox O2 Delivery O2 Flow Rate FiO2 04/29/16 02:28 16 04/29/16 02:05 67 18 132/73 100 Room Air 04/29/16 01:05 76 20 137/66 100 Room Air 04/29/16 00:08 20 04/29/16 00:00 18 100 Room Air 04/29/16 00:00 84 20 105/78 100 Room Air 04/28/16 23:27 98.1 86 28 125/75 100 CBC & BMP Diagram 04/29/16 01:45 Vital Signs Date Time Temp Pulse Resp B/P Pulse Ox O2 Delivery O2 Flow Rate FiO2 04/29/16 02:28 16 04/29/16 02:05 67 18 132/73 100 Room Air 04/29/16 01:05 76 20 137/66 100 Room Air 04/29/16 00:08 20 04/29/16 00:00 18 100 Room Air 04/29/16 00:00 84 20 105/78 100 Room Air 04/28/16 23:27 98.1 86 28 125/75 100 Differential Diagnosis Abdominal pain, abscess, seroma, UTI, pneumonia, postoperative pain Narrative Course 20-year-old female 5 days status post cholecystectomy without fever chills vomiting cough shortness of breath dysuria lower extremity pain or swelling and soft minimally tender abdomen to direct palpation without guarding or rebound and no evidence of postoperative wound infection presents for abdominal pain after trying to discontinue narcotic pain medication due to issues with complications at home. Specimens collected and sent for resulting. Patient administered Zofran 4 mg IV and 0.5 mg of Dilaudid IV times one dose. Lab values resulted and grossly within normal limits and improved compared to labs from 04/23/16. Patient is clinically improved. Patient is stable for outpatient management and follow-up with her managing physician. Diagnosis Primary Impression: Abdominal pain Qualified Code: R10.84 - Generalized abdominal pain Referrals: Rg Sharp MD 2 days Patient Instructions: General Instructions, Narcotic given in the ED Additional Instructions: Increase fluid hydration Monitor temperature for fever take as needed acetaminophen/Tylenol for fever 100.4F or greater or may use ibuprofen/Advil/Motrin 600 mg as often as every 6 hours or 800 mg as often as every 8 hours for fever 100.4F or greater or for pain associated with inflammation Continue current narcotic pain medication as prescribed by your primary care provider use with caution as narcotic pain medication may impair judgment, delay reaction time, increased risk for fall or cause constipation; to decrease concerns for constipation increase fluid hydration and may use stool softener such as MiraLAX per package directions Follow-up with your managing provider call office on Saturday to schedule appointment Return to the emergency department for increasing pain fever vomiting or any concerns Take medication as prescribed as needed for nausea and/or vomiting Med/Other Pt SpecificInfo: Prescription(s) given Scripts Promethazine (Phenergan)25 Mg Tab25 Mg PO Q6H PRN (Nausea/Vomiting) #10 TAB Ref 0 Prov:Britt Whitfield MD 04/29/16 Disposition: DISCHARGE HOME Condition: Stable Britt Whitfield MD Apr 29, 2016 03:12
[2016-04-29] MEDS ORDERED: KETOROLAC TROMETHAMINE 30 MG/ML (IVP) VIAL IV PUSH ONE (03:15)
[2016-04-29 03:46] VITALS: BP 129/63
== END 2016-04-29 03:48 | disposition home or self-care (01) ==
LOC: PHED 23:16
DX: R10.84 Generalized abdominal pain (principal); K59.00 Constipation, unspecified; K50.90 Crohn's disease, unspecified, without complications
CPT/HCPCS: 80053; 81001; 83690; 84703; 85025; 96361; 96374; 96375; 99284; J1885; J2270; J2405; J7030

== ENCOUNTER 2016-10-01 16:34 | Emergency (ER) | payer MEDICAID, MEDICARE ==
[~2016-10-01] VITALS: Ht 167.6 cm; Wt 128.4 kg
[~2016-10-01 16:34] MED LIST changes: +HYDR-3516 PO; -MINO75CA PO; +PROM25TA5 PO
[2016-10-01 16:42] VITALS: BP 139/76; PULSE 84; RESP 16; TEMP 98.1; O2SAT 99
--- NOTE | 2016-10-01 17:02 | PD ---
HPI Chief Complaint: Skin Problem Time Seen by Provider: 16:51 Travel History International Travel<30 days: No Contact w/Intl Traveler<30days: No Traveled to known affect area: No History of Present Illness HPI PATIENT STATES SHE HAS NOTED 5 DAYS OR SO OF A BOIL IN HER PUBIC AREA, HAS NOT SOUGHT CARE UNTIL TODAY, DENIES ABD PAIN/N/V/D/FEVER/ AT THIS POINT. ALL: BENADRYL (HIVES) PMH: COSTOCHONDRITIS/TOURETTES/ANXIETY PSHX: CHOLECYSTECTOMY PFSH Past Medical History ADHD: Yes Anemia: Yes Autoimmune Disease: No Anxiety: Yes (PANIC ATTACKS) Depression: Yes Cardiovascular Problems: Yes ("PERICARDITIS" 2010) Diminished Hearing: No Gastrointestinal Disorders: Yes (CROHN'S DISEASE) GERD: Yes Genitourinary: No Headaches: Yes Musculoskeletal: Yes (SCOLIOSIS, costochondritis ) Neurologic: Yes (TREMORS, TOURETTES) Psychiatric: Yes (ADHD) Reproductive: No Respiratory: No Immunizations Current: Yes Seizures: No ?: Not LMP: NOW : 0 Para: 0 Past Surgical History Cholecystectomy: Yes Oral Surgery: Yes (WISDOM TEETH REMOVED) Other Surgery: Yes (PILONIDAL CYST ) Social History Alcohol Use: Yes (occ) Tobacco Use: No Substance Use: No Allergies-Medications (Allergen,Severity, Reaction): Coded Allergies: Benadryl (Verified Allergy, Intermediate, HIVES, GI UPSET, 04/29/16) Reported Meds & Prescriptions Reported Meds & Active Scripts Active Reported Lexapro (Escitalopram Oxalate) 20 Mg Tab 20 Mg PO DAILY Colestipol (Colestipol HCl) 1 Gm Tab 2 Gm PO DAILY Topamax (Topiramate) 100 Mg Tab 100 Mg PO DAILY Risperdal (Risperidone) 1 Mg Tab 0.5 Mg PO BID Clonidine (Clonidine HCl) 0.1 Mg Tab 0.15 Mg PO TID Review of Systems Except as stated in HPI: all other systems reviewed are Neg Skin: Positive Lumps Physical Exam Narrative GENERAL: SKIN: Warm and dry. HEAD: Atraumatic. Normocephalic. EYES: Pupils equal and round. No scleral icterus. No injection or drainage. ENT: No nasal bleeding or discharge. Mucous membranes pink and moist. NECK: Trachea midline. No JVD. CARDIOVASCULAR: Regular rate and rhythm. RESPIRATORY: No accessory muscle use. Clear to auscultation. Breath sounds equal bilaterally. GASTROINTESTINAL: Abdomen soft, non-tender, nondistended. ROBERT SONG AT BEDSIDE ON MONS PUBIS A QUARTER SIZE INDURATION WITH RADHA SIZE ERYTHEMA, NO ACTUAL FLUCTUANCE OR DRAINAGE MUSCULOSKELETAL: Extremities without clubbing, cyanosis, or edema. No obvious deformities. NEUROLOGICAL: Awake and alert. No obvious cranial nerve deficits. Motor grossly within normal limits. Five out of 5 muscle strength in the arms and legs. Normal speech. PSYCHIATRIC: Appropriate mood and affect; insight and judgment normal. Data Data Last Documented VS Vital Signs Date Time Temp Pulse Resp B/P Pulse Ox O2 Delivery O2 Flow Rate FiO2 10/01/16 16:42 98.1 84 16 139/76 99 Orders Ed Urine Pregnancytest Poc (10/01/16 17:07) Sulfamet-Trimeth Ds 800-160 Mg (Bactrim (10/01/16 17:15) MDM Medical Decision Making Medical Screen Exam Complete: Yes Emergency Medical Condition: Yes Medical Record Reviewed: Yes Differential Diagnosis N/A Narrative Course N/A, PATIENT HAS A SIMPLE CELLULITIS WITHOUT ABSCESS AT THIS POINT Diagnosis Primary Impression: CELLULITIS TO MONS PUBIS Patient Instructions: Cellulitis (ED), General Instructions Scripts Codeine-Acetaminophen 30-300 mg Tab1 Tab PO Q4H PRN (PAIN) #12 TAB Prov:French Mead MD 10/01/16 Sulfamethoxazole-Trimethoprim (Bactrim DS)800-160 Mg Tab1 Tab PO BID #20 TAB Prov:French Mead MD 10/01/16 Disposition: 01 DISCHARGE HOME Condition: Stable French Mead MD Oct 01, 2016 17:02
[2016-10-01] MEDS ORDERED: SULFAMETHOXAZOLE-TRIMETHOPRIM DS 800-160 MG TAB PO ONE (17:15)
[2016-10-01] MEDS ORDERED: CODE30TA2 PO (17:20)
[2016-10-01] MEDS ORDERED: BACT800T5 PO (17:20)
== END 2016-10-01 17:27 | disposition home or self-care (01) ==
LOC: PHED 16:34
DX: L03.818 Cellulitis of other sites (principal); Z86.59 Personal history of other mental and behavioral disorders; Z86.2 Personal history of diseases of the blood and blood-forming organs and certain disorders involving the immune mechanism; Z86.79 Personal history of other diseases of the circulatory system; Z87.19 Personal history of other diseases of the digestive system; Z87.39 Personal history of other diseases of the musculoskeletal system and connective tissue; Z86.69 Personal history of other diseases of the nervous system and sense organs
CPT/HCPCS: 84703; 99284

== ENCOUNTER 2017-01-10 16:08 | Emergency (ER) | payer MEDICAID, MEDICARE ==
[~2017-01-10] VITALS: Ht 167.6 cm; Wt 132.3 kg
[~2017-01-10 16:08] MED LIST changes: -B12-1CHW CHEW; +BACT800T5 PO; -BETH10TA2 PO; +CODE30TA2 PO; -HYDR-3516 PO; -PROM25TA5 PO; -TOPA100T11 PO; +TOPI100 PO
[2017-01-10 16:12] VITALS: BP 133/77; PULSE 92; RESP 16; TEMP 98.4; O2SAT 99
[2017-01-10] MEDS ORDERED: FLUT1SPR5 (16:37)
[2017-01-10] MEDS ORDERED: BENZ100 PO (16:37)
--- NOTE | 2017-01-10 16:40 | PD ---
HPI Chief Complaint: ENT Complaint Time Seen by Provider: 16:35 Travel History International Travel<30 days: No Contact w/Intl Traveler<30days: No Traveled to known affect area: No History of Present Illness HPI 21-year-old female presents for evaluation. For one week she has had congestion , sinus pressure headache, dry cough. She has been using [id number] ibuprofen but symptoms persisted which prompted evaluation. Denies fevers, chills. She does endorse a slight sore throat as well. No sick contacts, no rash. No other complaints at this time. PFSH Past Medical History ADHD: Yes Anemia: Yes Autoimmune Disease: No Anxiety: Yes (PANIC ATTACKS) Depression: Yes Cardiovascular Problems: Yes ("PERICARDITIS" 2010) Diminished Hearing: No Gastrointestinal Disorders: Yes (CROHN'S DISEASE) GERD: Yes Genitourinary: No Headaches: Yes Musculoskeletal: Yes (SCOLIOSIS, costochondritis ) Neurologic: Yes (TREMORS, TOURETTES) Psychiatric: Yes (ADHD) Reproductive: No Respiratory: No Immunizations Current: Yes Seizures: No ?: Not LMP: 12/30/16 : 0 Para: 0 Past Surgical History Cholecystectomy: Yes Oral Surgery: Yes (WISDOM TEETH REMOVED) Other Surgery: Yes (PILONIDAL CYST ) Social History Alcohol Use: Yes (occ) Tobacco Use: No Substance Use: No Allergies-Medications (Allergen,Severity, Reaction): Coded Allergies: diphenhydramine (Unverified Allergy, Intermediate, HIVES, GI UPSET, ) Reported Meds & Prescriptions Reported Meds & Active Scripts Active Tessalon Perles (Benzonatate) 100 Mg Cap 200 Mg PO TID PRN Flonase Allergy Relief (Fluticasone Propionate) 50 Mcg/Actuation Ellinger.susp 2 Spr NA DAILY 10 Days Codeine-Acetaminophen 30-300 mg Tab 1 Tab PO Q4H PRN Bactrim DS (Sulfamethoxazole-Trimethoprim) 800-160 Mg Tab 1 Tab PO BID Reported Lexapro (Escitalopram Oxalate) 20 Mg Tab 20 Mg PO DAILY Colestipol (Colestipol HCl) 1 Gm Tab 2 Gm PO DAILY Topamax (Topiramate) 100 Mg Tab 100 Mg PO DAILY Risperdal (Risperidone) 1 Mg Tab 0.5 Mg PO BID Clonidine (Clonidine HCl) 0.1 Mg Tab 0.15 Mg PO TID Review of Systems Except as stated in HPI: all other systems reviewed are Neg Physical Exam Narrative GENERAL: Well-nourished female in no acute distress SKIN: Warm and dry. HEAD: Atraumatic. Normocephalic. EYES: Pupils equal and round. No scleral icterus. No injection or drainage. ENT: No nasal bleeding or discharge. Mucous membranes pink and moist. No oropharyngeal erythema or exudate. Tympanic membranes appear normal without erythema or fluid level. NECK: Trachea midline. No JVD. No lymphadenopathy CARDIOVASCULAR: Regular rate and rhythm. No murmur appreciated. RESPIRATORY: No accessory muscle use. Clear to auscultation. Breath sounds equal bilaterally. No crackles no wheezing or rhonchi Data Data Last Documented VS Vital Signs Date Time Temp Pulse Resp B/P (MAP) Pulse Ox O2 Delivery O2 Flow Rate FiO2 01/10/17 16:12 98.4 92 16 133/77 (95) 99 Orders Orders Ed Discharge Order (01/10/17 16:38) MDM Medical Decision Making Medical Screen Exam Complete: Yes Emergency Medical Condition: Yes Medical Record Reviewed: Yes Differential Diagnosis Sinusitis, bronchitis, pneumonia, pharyngitis, tonsillitis Narrative Course Physical examination is reassuring. She appears to have a viral upper respiratory infection. She'll be discharged with Tessalon and Flonase prescriptions. Diagnosis Primary Impression: Upper respiratory infection Qualified Codes: J06.9 - Acute upper respiratory infection, unspecified Additional Instructions: Medication as prescribed. Avoid tobacco products. Use [id number] nasal decongestants. Stay well hydrated and well-nourished, get plenty of rest. Return for any emergent medical conditions. Med/Other Pt SpecificInfo: Prescription(s) given Scripts Benzonatate (Tessalon Perles) 100 Mg Cap 200 MG PO TID Y for COUGH, #30 CAP 0 Refills Prov: Oswaldo Russo MD 01/10/17 Fluticasone Propionate (Flonase Allergy Relief) 50 Mcg/Actuation Ellinger.susp 2 SPR NA DAILY for 10 Days Prov: Oswaldo Russo MD 01/10/17 Disposition: 01 DISCHARGE HOME Condition: Stable [place] Jan 10, 2017 16:40
[2017-01-10] MEDS ORDERED: ZOLO25TA PO (16:52)
[2017-01-10] MEDS ORDERED: RISP0.252 PO (16:52)
[2017-01-10] MEDS ORDERED: FERR240T8 (16:52)
[2017-01-10] MEDS ORDERED: KETOROLAC TROMETHAMINE 60 MG/2 ML (IM) VIAL IM ONE (17:00)
== END 2017-01-10 17:09 | disposition home or self-care (01) ==
LOC: PHED 16:08 → PHEFT 17:09
DX: J06.9 Acute upper respiratory infection, unspecified (principal)
CPT/HCPCS: 96372; 99284; J1885

== ENCOUNTER 2017-02-02 15:47 | Emergency (ER) | payer MEDICAID ==
[~2017-02-02] VITALS: Ht 170.2 cm; Wt 133.0 kg
[~2017-02-02 15:47] MED LIST changes: -BACT800T5 PO; -CODE30TA2 PO; -COLE1TAB2 PO; +FERR240T8; -LEXA20TA PO; +RISP0.252 PO; +ZOLO25TA PO
[2017-02-02 15:51] VITALS: BP 119/68; PULSE 99; RESP 20; TEMP 98.2; O2SAT 98
[2017-02-02] MEDS ORDERED: IBUPROFEN 600 MG TAB PO ONE (16:15)
[2017-02-02] MEDS ORDERED: PHENAZOPYRIDINE HCL 200 MG TAB PO ONE (16:15)
[2017-02-02] MEDS ORDERED: BACT800T5 PO (16:25)
[2017-02-02] MEDS ORDERED: PHEN0.4T PO (16:25)
--- NOTE | 2017-02-02 16:26 | PD ---
HPI Chief Complaint: Complaint Time Seen by Provider: 16:04 Travel History International Travel<30 days: No Contact w/Intl Traveler<30days: No Traveled to known affect area: No History of Present Illness HPI 21-year-old female complains of low abdominal pain, low back pain and dysuria and frequency. Patient states that the symptoms started about 4 days ago. Patient states that the pain is cramping pain localized to lower abdomen. Patient denies any pain radiation. Patient denies any fever chills. Patient states that she has aching low back pain. Patient denies any vaginal discharge or bleeding. Patient denies any nausea vomiting diarrhea. On a scale of 1-10 the pain is an 8. PFSH Past Medical History ADHD: Yes Anemia: Yes Autoimmune Disease: No Anxiety: Yes (PANIC ATTACKS) Depression: Yes Cardiovascular Problems: Yes ("PERICARDITIS" 2010) Diminished Hearing: No Gastrointestinal Disorders: Yes (CROHN'S DISEASE) GERD: Yes Genitourinary: No Headaches: Yes Musculoskeletal: Yes (SCOLIOSIS, costochondritis ) Neurologic: Yes (TREMORS, TOURETTES) Psychiatric: Yes (ADHD) Reproductive: No Respiratory: No Immunizations Current: Yes Seizures: No Influenza Vaccination: No ?: Unknown LMP: 10 29 17 : 0 Para: 0 Past Surgical History Cholecystectomy: Yes Oral Surgery: Yes (WISDOM TEETH REMOVED) Other Surgery: Yes (PILONIDAL CYST ) Social History Alcohol Use: No Tobacco Use: No Substance Use: No Allergies-Medications (Allergen,Severity, Reaction): Coded Allergies: diphenhydramine (Unverified Allergy, Intermediate, HIVES, GI UPSET, ) Reported Meds & Prescriptions Reported Meds & Active Scripts Active Ibuprofen 600 Mg Tab 600 Mg PO TID Doxycycline Hyclate 100 Mg Cap 100 Mg PO BID Reported Iron (Ferrous Gluconate) 240 Mg (27 Mg Iron) Tablet Unknown Dose Zoloft (Sertraline HCl) 25 Mg Tab Unknown Dose PO DAILY Topamax (Topiramate) 100 Mg Tab 100 Mg PO DAILY Risperdal (Risperidone) 1 Mg Tab 0.5 Mg PO BID Clonidine (Clonidine HCl) 0.1 Mg Tab 0.15 Mg PO TID Review of Systems General / Constitutional: No: Fever Eyes: No: Visual changes HENT: No: Headaches Cardiovascular: No: Chest Pain or Discomfort Respiratory: No: Shortness of Breath Gastrointestinal: Positive: Abdominal Pain Genitourinary: Positive: Frequency, Dysuria Musculoskeletal: No: Pain Skin: No Rash Neurologic: No: Weakness Psychiatric: No: Depression Endocrine: No: Polydipsia Hematologic/Lymphatic: No: Easy Bruising Physical Exam Narrative GENERAL: Well-nourished, well-developed patient. SKIN: Focused skin assessment warm/dry. HEAD: Normocephalic. EYES: No scleral icterus. No injection or drainage. NECK: Supple, trachea midline. No JVD or lymphadenopathy. CARDIOVASCULAR: Regular rate and rhythm without murmurs, gallops, or rubs. RESPIRATORY: Breath sounds equal bilaterally. No accessory muscle use. GASTROINTESTINAL: Abdomen soft, nondistended. Patient has mild to moderate tenderness on palpation lower abdomen. No rebound tenderness. No mass. MUSCULOSKELETAL: No cyanosis, or edema. BACK: Nontender without obvious deformity. No CVA tenderness. SECURITY SYSTEMS TECHNICIAN exam: Patient has moderate amount of whitish discharge in the vaginal vault. Unable to do speculum exam all manual exam was patient's pain. Data Data Last Documented VS Vital Signs Date Time Temp Pulse Resp B/P (MAP) Pulse Ox O2 Delivery O2 Flow Rate FiO2 02/02/17 17:14 18 02/02/17 15:51 98.2 99 119/68 (85) 98 Orders Orders Urinalysis - C+S If Indicated (02/02/17 15:55) Ed Urine Pregnancytest Poc (02/02/17 15:57) Ibuprofen (Motrin) (02/02/17 16:15) Phenazopyridine (Pyridium) (02/02/17 16:15) Gc And Chlamydia Pcr (02/02/17 17:28) Wet Prep Profile (02/02/17 17:28) Azithromycin Powd Pack (Zithromax Powd P (02/02/17 17:45) Ceftriaxone Inj (Rocephin Inj) (02/02/17 17:45) Lidocaine 1% Inj (50 Ml) (Xylocaine 1% I (02/02/17 17:45) Ed Discharge Order (02/02/17 17:38) Labs Laboratory Tests Test 02/02/17 16:45 02/02/17 17:30 Urine Collection Type CLEAN CATCH Urine Color STRAW Urine Turbidity SLIGHT Urine pH 6.0 Urine Specific [place] 1.012 Urine Protein NEG mg/dL Urine Glucose (UA) NEG mg/dL Urine Ketones NEG mg/dL Urine Occult Blood SMALL Urine Nitrite NEG Urine Bilirubin NEG Urine Leukocyte Esterase NEG Urine WBC 0-2 /hpf Urine Squamous Epithelial Cells 2-4 /hpf Urine Mucus FEW /lpf Microscopic Urinalysis Comment CULT NOT INDICATED MDM Medical Decision Making Medical Screen Exam Complete: Yes Emergency Medical Condition: Yes Differential Diagnosis Differential diagnosis including urethritis, UTI, pyelonephritis, nephrolithiasis. Narrative Course 21-year-old female with low abdominal pain and dysuria and frequency. Diagnosis Primary Impression: Cervicitis Patient Instructions: General Instructions Additional Instructions: Take medications as directed. Encouraged by mouth fluid. Follow-up with personal physician. Return if worse. Med/Other Pt SpecificInfo: Prescription(s) given Scripts Ibuprofen (Ibuprofen) 600 Mg Tab 600 MG PO TID for Pain, #21 TAB 0 Refills Prov: Tre White MD 02/02/17 Doxycycline Hyclate (Doxycycline Hyclate) 100 Mg Cap 100 MG PO BID for Infection, #14 CAP 0 Refills Prov: Tre White MD 02/02/17 Disposition: 01 DISCHARGE HOME Condition: Stable Tre White MD Feb 02, 2017 16:25
[2017-02-02 16:50] LABS: BLOOD, URINE SMALL (NEG); GLUCOSE,URINE NEG (NEG); KETONE, URINE NEG (NEG); NITRITE,URINE NEG (NEG)
[2017-02-02 17:09] LABS: METHOD OF COLLECTION CLEAN CATCH; URINE COLOR STRAW (YELLW/STRAW)
[2017-02-02 17:10] LABS: COMMENT (UR) CULT NOT INDICATED; CULTURE IF INDICATED CULT NOT INDICATED; MUCUS URINE FEW /lpf (OCC); WBC, URINE 0-2 /hpf (0-5)
[2017-02-02 17:14] VITALS: RESP 18
[2017-02-02] MEDS ORDERED: IBUP-232 PO (17:38)
[2017-02-02] MEDS ORDERED: DOXY100C PO (17:38)
[2017-02-02] MEDS ORDERED: AZITHROMYCIN PWD FOR SUSP 1 GM PACKET PO ONE (17:45)
[2017-02-02] MEDS ORDERED: LIDOCAINE HCL 1% 50 ML VIAL IM ONE (17:45)
[2017-02-02] MEDS ORDERED: cefTRIAXone 250 MG VIAL IM ONE (17:45)
[2017-02-03 01:49] LABS: CHLAMYDIA PCR NOT DETECTED (NOT DETECT); NEISSERIA PCR NOT DETECTED (NOT DETECT)
== END 2017-02-02 17:52 | disposition home or self-care (01) ==
LOC: PHED 15:47
DX: N72 Inflammatory disease of cervix uteri (principal); M54.5 Low back pain
CPT/HCPCS: 81001; 84703; 87210; 87491; 87591; 96372; 99284; J0696

== ENCOUNTER 2017-03-09 20:58 | Emergency (ER) | payer MEDICAID, MEDICARE ==
[~2017-03-09] VITALS: Ht 167.6 cm; Wt 136.0 kg
[~2017-03-09 20:58] MED LIST changes: +DOXY100C PO; +IBUP-232 PO; -RISP0.252 PO
[2017-03-09 21:01] VITALS: BP 122/81; PULSE 108; RESP 22; TEMP 97.8; O2SAT 95
--- NOTE | 2017-03-09 21:53 | PD ---
HPI Chief Complaint: Cold / Flu Symptoms Time Seen by Provider: 21:39 Travel History International Travel<30 days: No Contact w/Intl Traveler<30days: No Traveled to known affect area: No History of Present Illness HPI The patient is a 21-year-old female that complains of cough, sore throat, right ear pain and pain on the anterior cervical chain lymph nodes below the right ear. This is been going on for week. She denies any short of breath. She denies any possibility of . She denies any myalgias. She denies any fever. PFSH Past Medical History ADHD: Yes Anemia: Yes Autoimmune Disease: No Anxiety: Yes (PANIC ATTACKS) Depression: Yes Cardiovascular Problems: Yes ("PERICARDITIS" 2010) Diminished Hearing: No Gastrointestinal Disorders: Yes (CROHN'S DISEASE) GERD: Yes Genitourinary: No Headaches: Yes Musculoskeletal: Yes (SCOLIOSIS, costochondritis ) Neurologic: Yes (TREMORS, TOURETTES) Psychiatric: Yes (ADHD) Reproductive: No Respiratory: No Immunizations Current: Yes Seizures: No ?: Not LMP: 03-04-17 : 0 Para: 0 Past Surgical History Cholecystectomy: Yes Oral Surgery: Yes (WISDOM TEETH REMOVED) Other Surgery: Yes (PILONIDAL CYST ) Social History Alcohol Use: No Tobacco Use: No Substance Use: No Allergies-Medications (Allergen,Severity, Reaction): Coded Allergies: diphenhydramine (Unverified Allergy, Intermediate, HIVES, GI UPSET, 03/09/17 ) Reported Meds & Prescriptions Reported Meds & Active Scripts Active Amoxicillin 875 Mg Tab 875 Mg PO BID 10 Days Reported Iron (Ferrous Gluconate) 240 Mg (27 Mg Iron) Tablet Unknown Dose Zoloft (Sertraline HCl) 25 Mg Tab Unknown Dose PO DAILY Topamax (Topiramate) 100 Mg Tab 100 Mg PO DAILY Risperdal (Risperidone) 1 Mg Tab 0.5 Mg PO BID Clonidine (Clonidine HCl) 0.1 Mg Tab 0.15 Mg PO TID Review of Systems Except as stated in HPI: all other systems reviewed are Neg Physical Exam Narrative GENERAL: Well-nourished, obese patient in no respiratory distress. Her vital signs show pulse of 108 but are otherwise unremarkable. SKIN: Focused skin assessment warm/dry. No skin rash is seen. HEAD: Normocephalic. EYES: No scleral icterus. No injection or drainage. NECK: Supple, trachea midline. No JVD or lymphadenopathy. CARDIOVASCULAR: Regular rate and rhythm without murmurs, gallops, or rubs. RESPIRATORY: Breath sounds equal bilaterally. No accessory muscle use. Lungs clear to auscultation bilaterally. GASTROINTESTINAL: Abdomen soft, non-tender, nondistended. MUSCULOSKELETAL: No cyanosis, or edema. BACK: Nontender without obvious deformity. No CVA tenderness. ENT: The right tympanic membrane is red and slightly distended, the left tympanic membrane and canal are normal. The right canal is normal. The throat is clear without exudate, erythema or abscess. Data Data Last Documented VS Vital Signs Date Time Temp Pulse Resp B/P (MAP) Pulse Ox O2 Delivery O2 Flow Rate FiO2 03/09/17 21:56 97.8 94 19 122/80 (94) 97 Orders Orders Group A Rapid Strep Screen (03/09/17 21:47) Strep Culture (Group A) (03/09/17 21:51) Amoxicillin (Trimox) (03/09/17 22:30) MDM Medical Decision Making Medical Screen Exam Complete: Yes Emergency Medical Condition: Yes Medical Record Reviewed: Yes Interpretation(s) The strep screen is negative for group A strep antigen. Differential Diagnosis Strep pharyngitis, viral pharyngitis, right otitis media, pneumonia, bronchitis Narrative Course The patient appears to have a right otitis media with a viral pharyngitis. She' ll be given amoxicillin 875 twice daily for 10 days and follow-up with her primary care physician. Diagnosis Primary Impression: Right otitis media Additional Impression: Viral pharyngitis Additional Instructions: Follow-up with your primary care physician next week. Med/Other Pt SpecificInfo: Prescription(s) given Scripts Amoxicillin (Amoxicillin) 875 Mg Tab 875 MG PO BID for Infection for 10 Days, #20 TAB 0 Refills Prov: Eugene Hale MD 03/09/17 Disposition: 01 DISCHARGE HOME Condition: Stable Eugene Hale MD Mar 09, 2017 21:53
[2017-03-09 21:56] VITALS: BP 122/80; PULSE 94; RESP 19; TEMP 97.8; O2SAT 97
[2017-03-09] MEDS ORDERED: AMOX875T PO (22:17)
[2017-03-09] MEDS ORDERED: AMOXICILLIN 875 MG TAB PO ONE (22:30)
== END 2017-03-09 22:33 | disposition home or self-care (01) ==
LOC: PHEFT 20:58
DX: H66.91 Otitis media, unspecified, right ear (principal); J02.8 Acute pharyngitis due to other specified organisms; F41.0 Panic disorder [episodic paroxysmal anxiety]; F32.9 Major depressive disorder, single episode, unspecified; F90.9 Attention-deficit hyperactivity disorder, unspecified type; K21.9 Gastro-esophageal reflux disease without esophagitis; K50.90 Crohn's disease, unspecified, without complications; M41.9 Scoliosis, unspecified
CPT/HCPCS: 87081; 87880; 99283

== ENCOUNTER 2017-04-23 18:33 | Emergency (ER) | payer MEDICAID ==
[~2017-04-23] VITALS: Ht 167.6 cm; Wt 132.4 kg
[~2017-04-23 18:33] MED LIST changes: +AMOX875T PO; -DOXY100C PO; -IBUP-232 PO
[2017-04-23 18:39] VITALS: BP 144/67; PULSE 75; RESP 19; TEMP 98.3; O2SAT 100
[2017-04-23] MEDS ORDERED: ZOFR4TAB PO (19:27)
[2017-04-23] MEDS ORDERED: CITA20TA4 PO (19:27)
[2017-04-23] MEDS ORDERED: COLE1TAB2 PO (19:27)
[2017-04-23] MEDS ORDERED: VITA10002 PO (19:27)
[2017-04-23] MEDS ORDERED: PROM6.256 PO (19:39)
[2017-04-23] MEDS ORDERED: ZOFR4TAB3 SL (19:39)
--- NOTE | 2017-04-23 19:39 | PD ---
HPI Chief Complaint: Cold / Flu Symptoms Time Seen by Provider: 19:13 Travel History International Travel<30 days: No Contact w/Intl Traveler<30days: No Traveled to known affect area: No History of Present Illness HPI The patient is a 21-year-old female who presents emergency department for cough and cold symptoms of greater than 4 days duration. The patient states her dad was recently diagnosed with influenza, the patient has had symptoms for more than 4 days. The patient has had nasal congestion, sore throat, dry nonproductive cough, nausea, vomiting, diarrhea, and body aches. She initially noticed subjective fevers which have resolved. She does complain of diffuse myalgias. The patient's symptoms have been ongoing for greater than 4 days. She did not receive an influenza vaccination this year. She denies any tobacco use. She denies any shortness of breath, does complain of chest pain with coughing. Symptoms are moderate. PFSH Past Medical History ADHD: Yes Anemia: Yes Autoimmune Disease: No Anxiety: Yes (PANIC ATTACKS) Depression: Yes Cardiovascular Problems: Yes ("PERICARDITIS" 2010) Diminished Hearing: No Gastrointestinal Disorders: Yes (CROHN'S DISEASE) GERD: Yes Genitourinary: No Headaches: Yes Musculoskeletal: Yes (SCOLIOSIS, costochondritis ) Neurologic: Yes (TREMORS, TOURETTES) Psychiatric: Yes (ADHD) Reproductive: No Respiratory: No Immunizations Current: Yes Seizures: No Tetanus Vaccination: < 5 Years Influenza Vaccination: No ?: Not LMP: 18 : 0 Para: 0 Past Surgical History Cholecystectomy: Yes Oral Surgery: Yes (WISDOM TEETH REMOVED) Other Surgery: Yes (PILONIDAL CYST ) Social History Alcohol Use: No Tobacco Use: No Substance Use: No Allergies-Medications (Allergen,Severity, Reaction): Coded Allergies: diphenhydramine (Unverified Allergy, Intermediate, HIVES, GI UPSET, ) Reported Meds & Prescriptions Reported Meds & Active Scripts Active Reported Colestipol (Colestipol HCl) 1 Gram Tab 2 Gm PO DAILY Vitamin B-12 (Cyanocobalamin) 1,000 Mcg Tab 1,000 Mcg PO DAILY Zofran (Ondansetron HCl) 4 Mg Tab 4 Mg PO Q6HR PRN Citalopram (Citalopram Hydrobromide) 20 Mg Tab 20 Mg PO DAILY Iron (Ferrous Gluconate) 240 Mg (27 Mg Iron) Tablet Unknown Dose BID Topamax (Topiramate) 100 Mg Tab 150 Mg PO DAILY Risperdal (Risperidone) 1 Mg Tab 0.5 Mg PO BID Clonidine (Clonidine HCl) 0.1 Mg Tab 0.15 Mg PO TID Review of Systems Except as stated in HPI: all other systems reviewed are Neg General / Constitutional: Positive: Fever HENT: Positive: Sore Throat, Congestion Respiratory: Positive: Cough Gastrointestinal: Positive: Nausea, Vomiting, Diarrhea, No: Abdominal Pain Genitourinary: No: Dysuria Musculoskeletal: Positive: Myalgias Physical Exam Narrative GENERAL: Awake, alert, 21-year-old female who appears her stated age and is in no acute respiratory distress. SKIN: Focused skin assessment warm/dry. HEAD: Atraumatic. Normocephalic. EYES: Pupils equal and round. No scleral icterus. No injection or drainage. ENT: No nasal bleeding or discharge. Erythema without exudate. NECK: Trachea midline. No JVD. CARDIOVASCULAR: Regular rate and rhythm. No murmur appreciated. Heart rate in the 80s. RESPIRATORY: No accessory muscle use. Clear to auscultation. Breath sounds equal bilaterally. GASTROINTESTINAL: Abdomen soft, non-tender, nondistended. No rebound tenderness. MUSCULOSKELETAL: No obvious deformities. No clubbing. No cyanosis. No edema. NEUROLOGICAL: Awake and alert. No obvious cranial nerve deficits. Motor grossly within normal limits. Normal speech. PSYCHIATRIC: Appropriate mood and affect; insight and judgment normal. Data Data Last Documented VS Vital Signs Date Time Temp Pulse Resp B/P (MAP) Pulse Ox O2 Delivery O2 Flow Rate FiO2 04/23/17 18:39 98.3 75 19 144/67 (92) 100 MDM Medical Decision Making Medical Screen Exam Complete: Yes Emergency Medical Condition: Yes Medical Record Reviewed: Yes Differential Diagnosis Differential diagnosis includes influenza, viral syndrome, URI, gastroenteritis , pneumonia, bronchitis, pharyngitis. Narrative Course The patient has been exposed influenza, however, her symptoms been ongoing for greater than 4 days, not a Tamiflu candidate. She is currently afebrile, no tachycardia or hypoxia, lung sounds are clear. Patient will be treated with Phenergan with codeine as needed for cough at night as well as Zofran as needed for nausea. Clear liquid diet. Follow-up with her primary physician. Diagnosis Primary Impression: Flu-like symptoms Patient Instructions: General Instructions Additional Instructions: Medications as directed. Alternate Tylenol and Motrin as needed. Work excuse for tomorrow. Clear liquid diet and advance as tolerated. Follow-up with a primary physician. Med/Other Pt SpecificInfo: Prescription(s) given Scripts Promethazine-Codeine Liq (Promethazine-Codeine Liq) 6.25-10 Mg/5 Ml Syrp 10 ML PO Q6H Y for COUGH AND/OR COLD SYMPTOMS, #120 ML 0 Refills Prov: James Sierra MD 04/23/17 Ondansetron Odt (Zofran Odt) 4 Mg Tab 4 MG SL Q6HR Y for Nausea/Vomiting, #7 TAB 0 Refills Prov: James Sierra MD 04/23/17 Disposition: 01 DISCHARGE HOME Condition: Stable James Sierra MD Apr 23, 2017 19:39
== END 2017-04-23 19:47 | disposition home or self-care (01) ==
LOC: PHEFT 18:33
DX: R05 Cough (principal); R09.81 Nasal congestion; R07.0 Pain in throat; R11.2 Nausea with vomiting, unspecified; R19.7 Diarrhea, unspecified; M79.1 Myalgia; F90.9 Attention-deficit hyperactivity disorder, unspecified type; F41.8 Other specified anxiety disorders; Z20.828 Contact with and (suspected) exposure to other viral communicable diseases; Z86.79 Personal history of other diseases of the circulatory system; Z87.19 Personal history of other diseases of the digestive system; Z87.39 Personal history of other diseases of the musculoskeletal system and connective tissue; Z86.69 Personal history of other diseases of the nervous system and sense organs
CPT/HCPCS: 99283

== ENCOUNTER 2017-07-29 20:10 | Emergency (ER) | payer MEDICARE, MEDICAID ==
[~2017-07-29] VITALS: Ht 170.2 cm; Wt 131.0 kg
[~2017-07-29 20:10] MED LIST changes: -AMOX875T PO; +CITA20TA4 PO; +COLE1TAB2 PO; +PROM6.256 PO; +VITA10002 PO; +ZOFR4TAB PO; +ZOFR4TAB3 SL; -ZOLO25TA PO
[2017-07-29 20:25] VITALS: BP 217/190; PULSE 116; RESP 24; TEMP 99.1; O2SAT 100
[2017-07-29] MEDS ORDERED: RESP: LIDOCAINE HCL 4% PF 5 ML NEB NEB ONE (20:30)
[2017-07-29] MEDS ORDERED: LORazepam 2 MG/ML VIAL IV PUSH ONE (20:30)
[2017-07-29] MEDS ORDERED: SODIUM CHLORID 0.9% 500 ML INJ 500 ML IV ONE (20:30)
[2017-07-29] MEDS ORDERED: methylPREDNISolone SOD SUCC 125 MG/2 ML VIAL IV PUSH ONE (20:30)
[2017-07-29] MEDS ORDERED: RESP: ALBUTEROL 2.5 MG/3 ML NEB (SCH) NEB ONE (20:30)
--- NOTE | 2017-07-29 20:40 | PD ---
HPI Chief Complaint: Anxiety Time Seen by Provider: 20:18 Travel History International Travel<30 days: No Contact w/Intl Traveler<30days: No Traveled to known affect area: No History of Present Illness HPI The patient is a 21-year-old female who presents to the emergency department via EMS from [facility] for a coughing spell. The patient was then the dressing room when she felt like something flew in her mouth. She then developed coughing, some burning in posterior aspect of the throat, and some tingling of the tongue. The patient states initially the coughing seemed to help with the burning pain in the throat, however, she is now unable to stop coughing. She does have a history of pleuritis but denies any acute shortness of breath or chest pain. The patient does have a history of Tourette's and anxiety, however , states that this is not her typical anxiety reaction. She does have a history of allergies to Benadryl, states Benadryl causes hives and GI upset. She denies any known history of pneumonitis and states that she did not come into the contact with any known aerosols or chemicals while in the dressing room at [facility]. Symptoms are moderate. PFSH Past Medical History ADHD: Yes Anemia: Yes Autoimmune Disease: No Anxiety: Yes (PANIC ATTACKS) Depression: Yes Cardiovascular Problems: Yes ("PERICARDITIS" 2010) Diminished Hearing: No Gastrointestinal Disorders: Yes (CROHN'S DISEASE) GERD: Yes Genitourinary: No Headaches: Yes Musculoskeletal: Yes (SCOLIOSIS, costochondritis ) Neurologic: Yes (TREMORS, TOURETTES) Psychiatric: Yes (ADHD) Reproductive: No Respiratory: No Immunizations Current: Yes Seizures: No : 0 Para: 0 Past Surgical History Cholecystectomy: Yes Oral Surgery: Yes (WISDOM TEETH REMOVED) Other Surgery: Yes (PILONIDAL CYST ) Social History Alcohol Use: No Tobacco Use: No Substance Use: No Allergies-Medications (Allergen,Severity, Reaction): Coded Allergies: diphenhydramine (Verified Allergy, Intermediate, HIVES, GI UPSET, 07/29/17) Reported Meds & Prescriptions Reported Meds & Active Scripts Active Promethazine-Codeine Liq 6.25-10 Mg/5 Ml Syrp 10 Ml PO Q6H PRN Zofran Odt (Ondansetron Odt) 4 Mg Tab 4 Mg SL Q6HR PRN Reported Colestipol (Colestipol HCl) 1 Gram Tab 2 Gm PO DAILY Vitamin B-12 (Cyanocobalamin) 1,000 Mcg Tab 1,000 Mcg PO DAILY Zofran (Ondansetron HCl) 4 Mg Tab 4 Mg PO Q6HR PRN Citalopram (Citalopram Hydrobromide) 20 Mg Tab 20 Mg PO DAILY Iron (Ferrous Gluconate) 240 Mg (27 Mg Iron) Tablet Unknown Dose BID Topamax (Topiramate) 100 Mg Tab 150 Mg PO DAILY Risperdal (Risperidone) 1 Mg Tab 0.5 Mg PO BID Clonidine (Clonidine HCl) 0.1 Mg Tab 0.15 Mg PO TID Review of Systems Except as stated in HPI: all other systems reviewed are Neg HENT: Positive: Sore Throat, No: Lightheadedness Cardiovascular: No: Chest Pain or Discomfort Respiratory: Positive: Cough, No: Shortness of Breath Gastrointestinal: No: Nausea, Vomiting, Abdominal Pain Musculoskeletal: No: Weakness Neurologic: No: Dizziness Psychiatric: Positive: Anxiety Physical Exam Narrative GENERAL: Awake, alert, pleasant 21-year-old female who appears her stated age and is in no acute respiratory distress. She is coughing and appears slightly anxious. SKIN: Focused skin assessment warm/dry. Sunburn noted on the forearms, no your urticaria noted. HEAD: Atraumatic. Normocephalic. EYES: Pupils equal and round. No scleral icterus. No injection or drainage. ENT: No nasal bleeding or discharge. Mucous membranes pink and moist. NECK: Trachea midline. No JVD. CARDIOVASCULAR: Regular, tachycardic with a heart rate 105. RESPIRATORY: No accessory muscle use. Clear to auscultation. Breath sounds equal bilaterally. No audible wheezing. GASTROINTESTINAL: Abdomen soft, non-tender, nondistended. Morbid obesity. MUSCULOSKELETAL: No obvious deformities. No clubbing. No cyanosis. No edema. NEUROLOGICAL: Awake and alert. No obvious cranial nerve deficits. Motor grossly within normal limits. Normal speech. Nonfocal PSYCHIATRIC: Appropriate mood and affect; insight and judgment normal. Data Data Last Documented VS Vital Signs Date Time Temp Pulse Resp B/P (MAP) Pulse Ox O2 Delivery O2 Flow Rate FiO2 07/29/17 20:35 116 24 100 Nasal Cannula 2.00 07/29/17 20:25 99.1 217/190 (199) Orders Orders Soft Tissue Neck (07/29/17 ) Methylprednisolone So Succ Inj (Solumedr (07/29/17 20:30) Lorazepam Inj (Ativan Inj) (07/29/17 20:30) Sodium Chlorid 0.9% 500 Ml Inj (Ns 500 M (07/29/17 20:30) Albuterol Neb (Albuterol Neb) (07/29/17 20:30) Lidocaine Pf 4% Neb (Lidocaine Pf 4% Neb (07/29/17 20:30) MDM Medical Decision Making Medical Screen Exam Complete: Yes Emergency Medical Condition: Yes Medical Record Reviewed: Yes Interpretation(s) Last Impressions Soft Tissue Neck X-Ray 07/29/17 0000 Signed Impressions: CONCLUSION: No unexpected radiopaque foreign bodies identified. Upper airway is clear radio graphically. Differential Diagnosis Differential diagnosis includes allergic reaction, anaphylaxis, angioedema, foreign body, anxiety, pneumonitis. Narrative Course IV was established, and the patient was placed on cardiac telemetry monitoring and continuous pulse oximetry monitoring. The patient was administered Solu- Medrol 125 mg intravenously, Ativan 1 mg intravenously, and IV fluids. Soft tissue x-ray of the neck was obtained. The patient was also administered an albuterol nebulizer with respiratory lidocaine. Soft tissue x-ray is unremarkable, no foreign body and no visible soft tissue swelling. The patient had no further cough after the DuoNeb and her heart rate and blood pressure improved. Patient is stable for outpatient follow-up. Diagnosis Primary Impression: Cough Patient Instructions: General Instructions Additional Instructions: Medications as directed. Please provide the patient a copy of her x-ray results at discharge. Follow-up with her primary physician. Work excuse for today. Med/Other Pt SpecificInfo: Prescription(s) given Scripts Prednisone (Prednisone) 20 Mg Tab 40 MG PO DAILY for 4 Days, #8 TAB 0 Refills Take 40 mg (2 tablets) daily for 5 days Prov: James Sierra MD 07/29/17 Disposition: 01 DISCHARGE HOME Condition: Stable James Sierra MD July 29, 2017 20:39
--- NOTE | 2017-07-29 21:31 | RADRPT ---
EXAM DATE: 07/29/2017 9:26 PM EDT AGE/SEX: 21 years / Female INDICATIONS: Sore throat. Possible foreign body CLINICAL DATA: This is the patient's initial encounter. Patient reports that signs and symptoms have been present for 1 day and indicates a pain score of 5/10. MEDICAL/SURGICAL HISTORY: None. None. COMPARISON: No prior [place] exams available for comparison. FINDINGS: Two-view examination of the soft tissues of the neck demonstrates the hypopharyngeal airway to have a grossly normal configuration. The trachea is midline. No radiopaque foreign bodies are seen. CONCLUSION: No unexpected radiopaque foreign bodies identified. Upper airway is clear radiographically. Electronically signed by: Billy Arredondo MD 07/29/2017 9:30 PM EDT
[2017-07-29] MEDS ORDERED: PRED20 PO (21:36)
[2017-07-29 22:04] VITALS: BP 143/74
== END 2017-07-29 22:22 | disposition home or self-care (01) ==
LOC: PHED 20:10
DX: R05 Cough (principal); F41.0 Panic disorder [episodic paroxysmal anxiety]; F90.9 Attention-deficit hyperactivity disorder, unspecified type; F32.9 Major depressive disorder, single episode, unspecified; F95.2 Tourette's disorder; K21.9 Gastro-esophageal reflux disease without esophagitis; K50.90 Crohn's disease, unspecified, without complications; M41.9 Scoliosis, unspecified
CPT/HCPCS: 70360; 94664; 96361; 96374; 96375; 99284; J2060; J2930; J7040; J7613

== ENCOUNTER 2017-08-13 23:35 | Emergency (ER) | payer MEDICARE, MEDICAID ==
[~2017-08-13] VITALS: Ht 170.2 cm; Wt 138.5 kg
[~2017-08-13 23:35] MED LIST changes: +PRED20 PO
[2017-08-13 23:39] VITALS: BP 139/92; PULSE 87; RESP 18; TEMP 98.7; O2SAT 98
[2017-08-14 01:08] LABS: BILIRUBIN, URINE NEG (NEG); BLOOD, URINE MOD (NEG); GLUCOSE,URINE NEG (NEG); KETONE, URINE NEG (NEG); NITRITE,URINE NEG (NEG); URINE COLOR YELLOW (YELLW/STRAW); URINE LEUKOCYTE ESTERASE NEG (NEG)
[2017-08-14 01:13] LABS: BACTERIA, URINE MOD /hpf; RBC, URINE 0-3 /hpf (0-3); SQUAMOUS EPITHELIAL CELL URINE > 8 /hpf (0-5)
[2017-08-14] MEDS ORDERED: ROBA500T PO (02:02)
[2017-08-14] MEDS ORDERED: TYLETAB34 PO (02:02)
--- NOTE | 2017-08-14 02:03 | PD ---
HPI Chief Complaint: Pain: Acute or Chronic Time Seen by Provider: 01:34 Travel History International Travel<30 days: No Contact w/Intl Traveler<30days: No Traveled to known affect area: No History of Present Illness HPI 21-year-old female with a past medical history of obesity, anxiety, Crohn's disease and depression presents to the emergency room complaining of acute lower back pain for 2 days. Pain is worse with movement and palpation to the lower back and is better by rest. Patient denies any fever, nausea, vomiting, shortness of breath, chest pain, vaginal bleeding or discharge. Patient's LMP is June 19, 2017. Patient denies any injury. PFSH Past Medical History ADHD: Yes Anemia: Yes Autoimmune Disease: No Anxiety: Yes (PANIC ATTACKS) Depression: Yes Cardiovascular Problems: Yes ("PERICARDITIS" 2010) Diminished Hearing: No Gastrointestinal Disorders: Yes (CROHN'S DISEASE) GERD: Yes Genitourinary: No Headaches: Yes Musculoskeletal: Yes (SCOLIOSIS, costochondritis ) Neurologic: Yes (TREMORS, TOURETTES) Psychiatric: Yes (ADHD) Reproductive: No Respiratory: No Immunizations Current: Yes Seizures: No ?: Not LMP: 06/19/17 : 0 Para: 0 Past Surgical History Cholecystectomy: Yes Oral Surgery: Yes (WISDOM TEETH REMOVED) Other Surgery: Yes (PILONIDAL CYST ) Social History Alcohol Use: Yes ("OCCASIONALLY") Tobacco Use: No Substance Use: No Allergies-Medications (Allergen,Severity, Reaction): Coded Allergies: diphenhydramine (Verified Allergy, Intermediate, HIVES, GI UPSET, 08/14/17) Reported Meds & Prescriptions Reported Meds & Active Scripts Active Robaxin (Methocarbamol) 500 Mg Tab 1,000 Mg PO QID Tylenol-Codeine #3 (Acetaminophen-Codeine) 300-30 mg Tab 1-2 Tab PO Q6H PRN Zofran Odt (Ondansetron Odt) 4 Mg Tab 4 Mg SL Q6HR PRN Reported Colestipol (Colestipol HCl) 1 Gram Tab 2 Gm PO DAILY Vitamin B-12 (Cyanocobalamin) 1,000 Mcg Tab 1,000 Mcg PO DAILY Zofran (Ondansetron HCl) 4 Mg Tab 4 Mg PO Q6HR PRN Citalopram (Citalopram Hydrobromide) 20 Mg Tab 20 Mg PO DAILY Iron (Ferrous Gluconate) 240 Mg (27 Mg Iron) Tablet Unknown Dose BID Topamax (Topiramate) 100 Mg Tab 150 Mg PO DAILY Risperdal (Risperidone) 1 Mg Tab 0.5 Mg PO BID Clonidine (Clonidine HCl) 0.1 Mg Tab 0.15 Mg PO TID Review of Systems Except as stated in HPI: all other systems reviewed are Neg General / Constitutional: No: Fever, Chills Eyes: No: Blurred Vision, Redness, Pain HENT: No: Rhinorrhea, Congestion, Neck Stiffness, Neck Pain, Earache Cardiovascular: No: Chest Pain or Discomfort, Palpitations, Dyspnea on exertion Respiratory: No: Cough, Shortness of Breath, Wheezing Gastrointestinal: No: Nausea, Vomiting, Diarrhea, Abdominal Pain, Hematochezia , Constipation Genitourinary: No: Dysuria Musculoskeletal: No: Myalgias Skin: No Rash, No Hives Neurologic: No: Weakness, Dizziness, Syncope, Headache, Slurred Speech, Seizures Psychiatric: No: Suicidal Ideations Physical Exam Narrative Vital Signs Date Time Temp Pulse Resp B/P (MAP) Pulse Ox O2 Delivery O2 Flow Rate FiO2 08/13/17 23:39 98.7 87 18 139/92 (108) 98 GENERAL: Patient is alert and oriented -3 SKIN: Focused skin assessment warm/dry. HEAD: Atraumatic. Normocephalic. EYES: Pupils equal and round. No scleral icterus. No injection or drainage. ENT: No nasal bleeding or discharge. Mucous membranes pink and moist. NECK: Trachea midline. No JVD. CARDIOVASCULAR: Regular rate and rhythm. No murmur appreciated. RESPIRATORY: No accessory muscle use. Clear to auscultation. Breath sounds equal bilaterally. GASTROINTESTINAL: Abdomen soft, non-tender, nondistended. Hepatic and splenic margins not palpable. MUSCULOSKELETAL: No obvious deformities. No clubbing. No cyanosis. No edema. Tenderness to palpation over the lumbar region bilaterally. Positive right leg raise test. NEUROLOGICAL: Awake and alert. No obvious cranial nerve deficits. Motor grossly within normal limits. Normal speech. PSYCHIATRIC: Appropriate mood and affect; insight and judgment normal. Data Data Last Documented VS Vital Signs Date Time Temp Pulse Resp B/P (MAP) Pulse Ox O2 Delivery O2 Flow Rate FiO2 08/14/17 02:26 82 16 152/86 (108) 98 08/13/17 23:39 98.7 Orders Orders Urinalysis - C+S If Indicated (08/14/17 00:57) Urine Culture (08/14/17 00:55) Ketorolac Inj (Toradol Inj) (08/14/17 02:15) Ed Discharge Order (08/14/17 02:05) Labs Laboratory Tests Test 08/14/17 00:55 Urine Color YELLOW Urine Turbidity SL CLOUDY Urine pH 6.0 Urine Specific [place] GREATER/EQUAL 1.030 Urine Protein NEG mg/dL Urine Glucose (UA) NEG mg/dL Urine Ketones NEG mg/dL Urine Occult Blood MOD Urine Nitrite NEG Urine Bilirubin NEG Urine Urobilinogen 0.2 MG/DL Urine Leukocyte Esterase NEG Urine RBC 0-3 /hpf Urine WBC 3-5 /hpf Urine Squamous Epithelial Cells > 8 /hpf Urine Bacteria MOD /hpf Microscopic Urinalysis Comment CULTURE INDICATED MDM Medical Decision Making Medical Screen Exam Complete: Yes Emergency Medical Condition: Yes Medical Record Reviewed: Yes Differential Diagnosis UTI, back pain, Narrative Course Back pain improved patient was ambulatory in the ED without difficulty will discharge home on pain medication. Diagnosis Primary Impression: Back pain Referrals: Primary Care Physician 2 days Patient Instructions: Acute Low Back Pain (DC), General Instructions Scripts Methocarbamol (Robaxin) 500 Mg Tab 1000 MG PO QID for Muscle Spasm, #15 TAB 0 Refills Prov: Luis Emery MD 08/14/17 Acetaminophen-Codeine (Tylenol-Codeine #3) 300-30 mg Tab 1-2 TAB PO Q6H Y for PAIN, #14 TAB 0 Refills Prov: Luis Emery MD 08/14/17 Disposition: 01 DISCHARGE HOME Condition: Stable Luis Emery MD Aug 14, 2017 02:03
[2017-08-14] MEDS ORDERED: KETOROLAC TROMETHAMINE 60 MG/2 ML (IM) VIAL IM ONE (02:15)
[2017-08-14 02:26] VITALS: BP 152/86
== END 2017-08-14 02:27 | disposition home or self-care (01) ==
LOC: PHED 23:35
DX: M54.5 Low back pain (principal); E66.9 Obesity, unspecified; F32.9 Major depressive disorder, single episode, unspecified; F41.9 Anxiety disorder, unspecified; F90.9 Attention-deficit hyperactivity disorder, unspecified type; K21.9 Gastro-esophageal reflux disease without esophagitis; K50.90 Crohn's disease, unspecified, without complications; M41.9 Scoliosis, unspecified
CPT/HCPCS: 81001; 87086; 96372; 99283; J1885